=== PATIENT | male | born 1940 | race Caucasian/White ===

== ENCOUNTER 2019-11-28 15:59 | Inpatient (IN) | payer MEDICARE, SELFPAY ==
--- NOTE | ~2019-11-28 | CT_ITS ---
EXAMINATION: CT abdomen pelvis wo con EXAM DATE: 11/28/2019 18:13 INDICATION: Abdominal distention, recent PICC placement. TECHNIQUE: Spiral CT of the abdomen and pelvis was performed without contrast. Axial, coronal and s agittal images were reviewed. The dose-length product (DLP) for this examination was 518.55 mGy-cm. The exposure was tailored according to patient size (auto mA exposure control), and iterative recons truction (ASIR) was used as additional dose reduction technique. Comparison is made to prior examinat ion from 10/19/2019. FINDINGS: Small to moderate left, small right pleural effusions with adjacent subsegmental atelectasi s, has developed compared to previous examination. There is also small pericardial effusion. There is diffuse edema within fat planes superficially and within the mesentery, anasarca. Evaluation of the abdomen is limited from anasarca (has progressed), and large amount of dense materi al within the colon from enema performed 2 days earlier. The liver, spleen, adrenal glands and pancre as are grossly unremarkable. Gallbladder is poorly visualized. There is no nephrolithiasis or hydro nephrosis. The prostate is unremarkable. The bladder is unremarkable. There is extensive scatter ed arterial sclerotic disease. Appendix is not identified. The stomach and small bowel are unremarkable. Gastrostomy tube is in posi tion. No free intraperitoneal gas. Right hip lag screws. There are no osteoblastic or osteolyti c lesions identified. There is emphysema. IMPRESSION: 1. Significantly limited exam due to large amount of retained colonic barium, noncontrast study and worsening anasarca. 2. Development of small to moderate left, small right pleural effusions and adjacent atelectasis. 3. Gastrostomy tube in position. No free intraperitoneal air. Reviewed, dictated and finalized at location A. [employer] IMPRESSION: 1. Significantly limited exam due to large amount of retained colonic barium, noncontrast study and worsening anasarca. 2. Development of small to moderate left, small right pleural effusions and ad jacent atelectasis. 3. Gastrostomy tube in position. No free intraperitoneal air.
--- NOTE | ~2019-11-28 | XR_ITS ---
EXAMINATION: XR abdomen/kub 1V INDICATION: Abdominal distention TECHNIQUE: Supine view of the abdomen is obtained. COMPARISON: 11/25/2019 FINDINGS: There is a moderate amount of fluid obtained enteric contrast material in the colon from re cent barium enema. There is unchanged chronically dilated loop of small bowel in the midabdomen. A ga strostomy is noted. No free intraperitoneal gas is identified. The visualized lung bases are clear. IMPRESSION: 1. Moderate volume of retained enteric contrast material. 2. Chronic small bowel dilatation. Reviewed, dictated and finalized at location A. NICAL AID
--- NOTE | ~2019-11-28 | XR_ITS ---
EXAMINATION: XR abdomen/kub 1V INDICATION: Ileus TECHNIQUE: Supine view of the abdomen is obtained. COMPARISON: 11/29/2019 FINDINGS: There is persistent but decreased amount of retained enteric contrast material in the colon . A gastrostomy is again noted. There is an unchanged chronically dilated loop of small bowel in the upper abdomen. Internal stabilization screws are present in the right femoral neck. Incidental note i s made of a fragmented metallic density of the right thumb which has the appearance of a sewing needl e. IMPRESSION: 1. Persistent but decreased volume of retained enteric contrast material in the colon. 2. Chronically dilated small bowel loop. Reviewed, dictated and finalized at location A. OCCUPATIONAL HEALTH
--- NOTE | ~2019-11-28 | XR_ITS ---
EXAMINATION: XR UGI water soluble w sbs DATE: 12/01/2019 14:20 INDICATION: Ileus versus partial obstruction, history of Crohn disease TECHNIQUE: Water-soluble contrast was instilled through the patient's gastrostomy. Conventional supin e abdomen radiographs and fluoroscopy of the stomach and small bowel were performed. Fluoroscopy expo sure time was 1.5 minutes. The DAP for this procedure was 36.602 Gycm2. COMPARISON: None. FINDINGS: UPPER GASTROINTESTINAL SERIES: The stomach is normal in appearance. There is a small sliding hiatal hernia. The stomach shows a norm al folding pattern.] There is spontaneous gastroesophageal reflux. SMALL BOWEL SERIES: Transit time from the stomach to proximal colon was approximately 30 minutes. There is a single persi stent chronically dilated loop of small bowel in the right upper quadrant. An abrupt cut off in the b owel loop seen on the 15 minute postcontrast radiograph does not persist with real-time fluoroscopy. No focal transition point is identified. No tethering or abnormal mass effect observed upon the small bowel with real-time fluoroscopy. IMPRESSION: 1. Chronic persistent dilatation of a right upper quadrant small bowel loop, likely adynamic ileus or partial obstruction. 2. Small sliding hiatal hernia with spontaneous gastroesophageal reflux. Reviewed, dictated and finalized at location A. AMING MEDIA SPECIALIST IMPRESSION: 1. Chronic persistent dilatation of a right upper quadrant small bowel loop, li leonides adynamic ileus or partial obstruction. 2. Small sliding hiatal hernia with spontaneous gastroesophageal reflux.
--- NOTE | ~2019-11-28 | XR_ITS ---
EXAMINATION: XR abdomen/kub 1V DATE: 12/01/2019 09:05 INDICATION: Small bowel obstruction. TECHNIQUE: A supine view of the abdomen was obtained. COMPARISON: CT abdomen and pelvis 11/28/2019 FINDINGS: There is gaseous distention of the colon. There is a small volume of contrast in the distal colon. There is a gastrostomy tube in expected position. There are pins in proximal right femur. IMPRESSION: 1. Gaseous distention of the colon, consistent with adynamic ileus. Reviewed, dictated and finalized at location B. IBILITY COUNSELOR
[2019-11-28 15:59] VITALS: BP 142/77; PULSE 92; RESP 16; TEMP 36.6; O2SAT 96
--- NOTE | 2019-11-28 16:07 | ED.ABDPAIN ---
HPI - Abdominal Pain General Chief Complaint: Abdominal Pain <Kalen Bedolla MD - Last Filed: 11/28/19 18:23> Stated Complaint: Abd Distended/Pain <Kalen Bedolla MD - Last Filed: 11/28/19 18:23> Time Seen by Provider: 11/28/19 16:04 <Kalen Bedolla MD - Last Filed: 11/28/19 18:23> Source: patient and old records reviewed <Kalen Bedolla MD - Last Filed: 11/28/19 18:23> Mode of arrival: EMS <Kalen Bedolla MD - Last Filed: 11/28/19 18:23> Limitations: no limitations <Kalen Bedolla MD - Last Filed: 11/28/19 18:23> History of Present Illness HPI narrative: A 79 y/o male pt presents to the ED, via ems, from [facility], with C/O ABD pain that began at 1400 PM. Pt states his ABD feels distended and states that his ABD pain is preventing him from lying on his back. Pt states he was admitted to the hospital on 11/12/2019 because he was not eating d/t his depression. Per records, pt was admitted for severe weakness and hyponatremia and a g-tube was placed by Dr. Mills on 11/24/2019. Pt passed gas on the way to the ED but denies any gas or belching in the ED. Pt also denies N/V/D and denies having any other pain. He states that he does feel SOB and has a cough and cold Sx. Pt denies any ABD surgeries besides placement of g-tube. He states that his helps him to make medical decisions and he is currently being treated for depression. Pt denies being able to get up and walk around. <Kalen Bedolla MD - Last Filed: 11/28/19 18:23> MD elicited complaint: abdominal pain <Kalen Bedolla MD - Last Filed: 11/28/19 18:23> Pertinent past history: other (g-tube placement) <Kalen Bedolla MD - Last Filed: 11/28/19 18:23> Onset (ago): hour(s) (2) <Kalen Bedolla MD - Last Filed: 11/28/19 18:23> Exacerbating factors: other (lying on back) <Kalen Bedolla MD - Last Filed: 11/28/19 18:23> Associated symptoms: other (cough, SOB, cold Sx) <Kalen Bedolla MD - Last Filed: 11/28/19 18:23> Related Data Home Medications: Home Medications Medication Instructions Recorded Confirmed fluticasone propionate 50 2 spray NASAL DAILY 08/30/19 11/12/19 mcg/actuation nasal spray,suspension ipratropium bromide 0.02 % 2.5 ml INHALATION Q6H 08/30/19 11/12/19 solution for inhalation multivitamin [Jhz-Eziwpj-Lvsqv] 1 tablet PO DAILY 10/18/19 11/12/19 calcium carbonate [Oyster Shell 500 mg PO BID 11/12/19 11/12/19 Calcium 500] budesonide-formoterol [Symbicort] 2 puff INHALATION Q12H 11/28/19 11/28/19 roflumilast [Daliresp] 500 mcg FEEDING TUBE DAILY 11/28/19 <Kalen Bedolla MD - Last Filed: 11/28/19 18:23> Allergies/Adverse Reactions: Allergies Allergy/AdvReac Type Severity Reaction Status Date / Time No Known Allergies Allergy Verified 11/28/19 16:06 <Kalen Bedolla MD - Last Filed: 11/28/19 18:23> Review of Systems Review of Systems: All systems reviewed & are unremarkable except as noted in HPI and below <Kalen Bedolla MD - Last Filed: 11/28/19 18:23> ENT: Reports other (cold Sx) <Kalen Bedolla MD - Last Filed: 11/28/19 18:23> Respiratory: Respiratory: Reports cough and Reports dyspnea <Kalen Bedolla MD - Last Filed: 11/28/19 18:23> Gastrointestinal: Gastrointestinal: Reports abdominal pain, Denies belching, Reports bloating, Denies excessive flatus, Denies diarrhea, Denies nausea, Denies vomiting and Reports other (passed gas en route) <Kalen Bedolla MD - Last Filed: 11/28/19 18:23> PMFSH Past Medical History Medical History: Medical History Anemia Angina at rest Anxiety AVM (arteriovenous malformation) of duodenum, acquired Bronchiectasis without complication CHF with left ventricular diastolic dysfunction, NYHA class 1 Chronic GERD Chronic obstructive pulmonary disease Claudication Crohn's disease Cr
[2019-11-28 16:34] LABS: Basophils Percent Auto 0.6 % (0.2-1.2); Eosinophils Percent Auto 0.6 % (0-4.4); Hematocrit 26.9 % (42.0-52.0); Immature Granulocyte Absolute 0.03 K/mm3 (0.00-0.031); Immature Granulocyte Percent A 0.5 % (0-0.5); Lymphocytes Absolute Auto 0.97 K/mm3 (0.9-3.2); Lymphocytes Percent Auto 14.6 % (18.3-44.2); Mean Corpuscular HGB Conc 33.5 g/dl (32-36); Mean Corpuscular Volume 89.7 fl (80-100); Mean Platelet Volume 9.2 fl (7.4-10.4); Monocytes Absolute Auto 0.5 K/mm3 (0.1-0.6); Monocytes Percent Auto 8.1 % (2.6-8.5); Neutrophils Percent Auto 75.6 % (45.5-73.1); Platelet Count Result 354 k/mm3 (150-375); Red Cell Distribution Width 15.9 % (11.5-14.5); White Blood Count 6.7 K/mm3 (4.5-10.0)
[2019-11-28 16:50] LABS: Lactic Acid Reflex 0.7 mmol/L (0.7-2.1)
[2019-11-28 16:57] LABS: Magnesium 1.7 mg/dL (1.6-2.3)
[2019-11-28 17:09] LABS: Alanine Aminotransferase 46 U/L (4-50); Albumin Level 2.4 g/dL (3.5-5.1); Alkaline Phosphatase 93 U/L (38-126); Aspartate Amino Transferase 61 U/L (17-59); Bilirubin,Total 0.4 mg/dL (0.2-1.3); Blood Urea Nitrogen 16 mg/dL (9-20); Carbon Dioxide 27 mmol/L (22-30); Chloride 92 mmol/L (98-107); Estimated CRCL calculation 111 ml/min; Estimated Glomerular Filt Rate > 60; Glucose 83 mg/dL (75-110); Lipase 70 U/L (23-300); Potassium 3.6 mmol/L (3.4-5.0); Sodium 125 mmol/L (137-145)
[2019-11-28 18:28] VITALS: BP 151/81; PULSE 90; RESP 20; O2SAT 97
[2019-11-28] MEDS: metroNIDAZOLE 500 MG/ISO 100ML 500 MG/100 ML BAG 100 MG IVPB (20:15)
[2019-11-28 20:24] VITALS: BP 151/83; PULSE 85; RESP 20; TEMP 37.1; O2SAT 98
[2019-11-28 21:02] VITALS: BMI 19.1
[2019-11-28 21:51] VITALS: BP 158/86; PULSE 91; RESP 18; TEMP 36.6; O2SAT 98; BMI 19.1
[2019-11-28] MEDS: CIPROFLOXACIN 400 MG/D5W 200ML 200 ML 200 MG IVPB (22:07)
[2019-11-28] MEDS: SODIUM CHLORIDE 0.9% IV 1,000 ML 125 ML IV CONT (22:07)
[2019-11-29] MEDS: SODIUM CHLORIDE 0.9% IV 1,000 ML 125 ML IV CONT ×2 (05:05→15:22)
[2019-11-29 06:00] VITALS: BP 129/75; PULSE 88; RESP 18; TEMP 37; O2SAT 95
[2019-11-29 06:14] LABS: Basophils Percent Auto 0.5 % (0.2-1.2); Eosinophils Percent Auto 0.5 % (0-4.4); Hematocrit 23.9 % (42.0-52.0); Hemoglobin 8.1 g/dL (14.0-18.0); Immature Granulocyte Absolute 0.02 K/mm3 (0.00-0.031); Immature Granulocyte Percent A 0.5 % (0-0.5); Lymphocytes Absolute Auto 0.75 K/mm3 (0.9-3.2); Lymphocytes Percent Auto 17.2 % (18.3-44.2); Mean Corpuscular HGB Conc 33.9 g/dl (32-36); Mean Corpuscular Hemoglobin 29.9 pg (26-34); Mean Corpuscular Volume 88.2 fl (80-100); Mean Platelet Volume 9.2 fl (7.4-10.4); Monocytes Absolute Auto 0.4 K/mm3 (0.1-0.6); Monocytes Percent Auto 9.2 % (2.6-8.5); Neutrophils Absolute Auto 3.1 K/mm3 (1.3-6.7); Neutrophils Percent Auto 72.1 % (45.5-73.1); Platelet Count Result 307 k/mm3 (150-375); Red Blood Count 2.71 M/mm3 (4.6-6.20); Red Cell Distribution Width 15.9 % (11.5-14.5); White Blood Count 4.4 K/mm3 (4.5-10.0)
[2019-11-29 06:35] LABS: Alanine Aminotransferase 37 U/L (4-50); Albumin Level 2.1 g/dL (3.5-5.1); Alkaline Phosphatase 72 U/L (38-126); Aspartate Amino Transferase 50 U/L (17-59); Bilirubin,Total 0.3 mg/dL (0.2-1.3); Blood Urea Nitrogen 14 mg/dL (9-20); Calcium 7.8 mg/dL (8.4-10.2); Carbon Dioxide 26 mmol/L (22-30); Chloride 94 mmol/L (98-107); Estimated CRCL calculation 77 ml/min; Estimated Glomerular Filt Rate > 60; Glucose 83 mg/dL (75-110); Potassium 3.4 mmol/L (3.4-5.0); Sodium 126 mmol/L (137-145)
[2019-11-29] MEDS: metroNIDAZOLE 500 MG/ISO 100ML 500 MG/100 ML BAG 100 MG IVPB (08:21)
[2019-11-29 09:15] LABS: Glucose Point of Care 93 (65-105)
[2019-11-29] MEDS: CIPROFLOXACIN 400 MG/D5W 200ML 200 ML 200 MG IVPB (09:38)
--- NOTE | 2019-11-29 09:59 | PM.IMHP ---
H&P: HPI History of Present Illness Chief complaint: ileus Narrative: Stanley Cook is a 79 year old male was recently discharged from [facility] on November 27. Due to depression and anorexia in spite of a normal modified barium swallow he required a feeding tube that was placed on November 24 to maintain nutrition. He was tolerating the tube feedings well. However during the afternoon of November 28 he developed some abdominal discomfort. Aching. Bloating. Worse with lying flat. Worse with movement. He had been having liquid stools without bleeding but with incontinence since starting the tube feeding. Is also incontinent of urine. Prior urinary retention both no further issues with that. No nausea or vomiting. No dysuria or hematuria. Remains anorectic. No fevers chills or sweats. Review of Systems Review of Systems: All systems reviewed & are unremarkable except as noted in HPI and below PMFSH Past Medical History Medical History Anemia Angina at rest Anxiety AVM (arteriovenous malformation) of duodenum, acquired Bronchiectasis without complication CHF with left ventricular diastolic dysfunction, NYHA class 1 Chronic GERD Chronic obstructive pulmonary disease Claudication Crohn's disease Crohn's disease Dementia Depression Dysphagia Enlarged prostate slightly Essential (primary) hypertension Falls Gastric ulcer Glaucoma Hyperlipidemia Hyponatremia Ileal stenosis Insomnia 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 He is a full code. He has 2 children. 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 [employer] Gender identity (if verbalized by the patient): Male Spiritual care concerns: No Agree to blood products: Yes Meds Home Medications and Allergies Home Medications Medication Instructions Recorded Confirmed Type fluticasone propionate 50 2 spray NASAL DAILY 08/30/19 11/28/19 History mcg/actuation nasal spray,suspension ipratropium bromide 0.02 % 2.5 ml INHALATION Q6H 08/30/19 11/28/19 History solution for inhalation alprazolam 0.5 mg tablet 0.5 mg PO DAILY PRN #30 tablet 09/19/19 11/28/19 Rx multivitamin [Gjp-Hbuamx-Eunxm] 1 tablet PO DAILY 10/18/19 11/28/19 History calcium carbonate [Oyster Shell 500 mg PO 0900,1700 11/12/19 11/28/19 History Calcium 500] acetaminophen [Nortemp] 650 mg FEEDING TUBE Q4H PRN 30 11/27/19 11/28/19 Rx Days ml albuterol sulfate 2.5 mg INHALATION Q4HRT PRN 30 11/27/19 11/28/19 Rx Days each atorvastatin 40 mg FEEDING TUBE DAILY 30 Days 11/27/19 11/28/19 Rx #30 tablet diphenoxylate-atropine 1 tablet FEEDING TUBE PRN PRN 30 11/27/19 11/28/19 Rx Days tablet folic acid 1 mg FEEDING TUBE DAILY #30 tablet 11/27/19 11/28/19 Rx guaifenesin 200 mg PO Q4H PRN 30 Days ml 11/27/19 11/28/19 Rx ipratropium bromide 0.5 mg INHALATION Q4HRT PRN 30 11/27/19 11/28/19 Rx Days ml lansoprazole 30 mg FEEDING TUBE DAILY 30 Days 11/27/19 11/28/19 Rx #3
[2019-11-29] MEDS: FLUTICASONE PROPIONATE 0.05% NA SPR 16 GM BTL (*BKC) 2 SPRAY NASAL (11:49)
[2019-11-29] MEDS: PROCHLORPERAZINE EDISYLATE 10 MG/2 ML VIAL IV PUSH (11:50)
[2019-11-29] MEDS: TOLNAFTATE 1% POWDER 45 GM BTL 1 APPLIC TOPICAL ×2 (11:50→20:38)
[2019-11-29 12:14] LABS: Glucose Point of Care 83 (65-105)
[2019-11-29] MEDS: polyethylene glycoL 3350 17 GM POWD.PACK PO ×5 (12:45→22:27)
[2019-11-29 14:00] VITALS: BP 131/80; PULSE 102; RESP 16; TEMP 36.3; O2SAT 100
--- NOTE | 2019-11-29 14:14 | WPDGICN ---
Assessment and Plan Assessment and plan (1) Ileus: Code(s): K56.7 - Ileus, unspecified Status: Acute Assessment and Plan: Will continue Miralax q 2 h Consider enemas Keep NPO. (2) Ileal stenosis: Code(s): K56.699 - Other intestinal obstruction unspecified as to partial versus complete obstruction Status: Acute (3) Crohn's disease: Qualifiers: Gastrointestinal tract location: small intestine Digestive disease complication type: unspecified complication Qualified Code(s): K50.019 - Crohn's disease of small intestine with unspecified complications Code(s): K50.90 - Crohn's disease, unspecified, without complications Status: Acute Assessment and Plan: Would like to start oral prednisone 40 mg daily. Taper at discharge. (4) Protein-calorie malnutrition, moderate: Code(s): E44.0 - Moderate protein-calorie malnutrition Status: Acute (5) Diarrhea: Code(s): R19.7 - Diarrhea, unspecified Status: Acute Assessment and Plan: Will check c diff and stool studies. This could be secondary to ileal stricture GI Consult Note Consult date/time: 11/29/19 14:14 HPI: Stanley Cook is a 79 year old male presented to ED 11/28/2019 for worsening abdominal pain and bloating per H&P note. Patient was recently discharged 1 day prior after he was admitted for malnutrition and anorexia. He had PEG tube placed by Dr. Mills and was tolerating tube feedings. He did have noted that previous admission concerns for SBO vs Ileus. He had a barium enema that showed retained contrast in the colon. This admission he had CT abd/pelvis that showed persisant chronic SBO and retained barium in colon along with worsening anasaraca. Nurse tells me that patient is having liquids stools. She denies any nausea, vomiting. Tube feedings are currently on hold. He had c diff previous admission that was normal. WBC low at 4.1, hgb/hct stable. He does have hx of crohn's disease and had colonoscopy earlier in the year that showed some colitis and ileal stenosis. He was on oral prednisone prior to previous admission. He does have hx of gastritis with erosions and AVM's of the duodenum. Review of Systems Review of Systems: All systems reviewed & are unremarkable except as noted in HPI and below PMFSH Past Medical History Medical History Anemia Angina at rest Anxiety AVM (arteriovenous malformation) of duodenum, acquired Bronchiectasis without complication CHF with left ventricular diastolic dysfunction, NYHA class 1 Chronic GERD Chronic obstructive pulmonary disease Claudication Crohn's disease Crohn's disease Dementia Depression Dysphagia Enlarged prostate slightly Essential (primary) hypertension Falls Gastric ulcer Glaucoma Hyperlipidemia Hyponatremia Ileal stenosis Insomnia FCI use of drug Low back pain at multiple sites Lung nodules Memory loss TAD (obstructive sleep apnea) Peripheral neuropathy Personal history of colonic polyps Pulmonary emphysema Pulmonary hypertension Thrush UTI (urinary tract infection) Surgical History Surgical History History of cardiac catheterization History of hip surgery right Hx of appendectomy Hx of colonoscopy Hx of esophagogastroduodenoscopy Hx of tonsillectomy Social History Social History Social History: He lives with his who is his durable power criminal defense attorney for healthcare. He is a full code. He has 2 children. 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/education comments: [employer]
[2019-11-29 15:23] LABS: Hematocrit 28.3 % (42.0-52.0); Hemoglobin 9.6 g/dL (14.0-18.0); Mean Corpuscular HGB Conc 33.9 g/dl (32-36); Mean Corpuscular Hemoglobin 29.9 pg (26-34); Mean Corpuscular Volume 88.2 fl (80-100); Mean Platelet Volume 9.1 fl (7.4-10.4); Platelet Count Result 355 k/mm3 (150-375); Red Blood Count 3.21 M/mm3 (4.6-6.20); White Blood Count 4.8 K/mm3 (4.5-10.0)
[2019-11-29 15:33] LABS: INR 1.1; Prothrombin Time 13.8 Seconds (11.1-14.7)
[2019-11-29 15:47] LABS: Alanine Aminotransferase 39 U/L (4-50); Albumin Level 2.6 g/dL (3.5-5.1); Alkaline Phosphatase 91 U/L (38-126); Aspartate Amino Transferase 55 U/L (17-59); Bilirubin,Total 0.5 mg/dL (0.2-1.3); Blood Urea Nitrogen 12 mg/dL (9-20); Calcium 8.3 mg/dL (8.4-10.2); Carbon Dioxide 26 mmol/L (22-30); Chloride 95 mmol/L (98-107); Estimated CRCL calculation 77 ml/min; Estimated Glomerular Filt Rate > 60; Glucose 74 mg/dL (75-110); Magnesium 1.8 mg/dL (1.6-2.3); Potassium 3.2 mmol/L (3.4-5.0); Sodium 128 mmol/L (137-145)
[2019-11-29 15:58] LABS: CRP 3.9 mg/dL (<1.0)
[2019-11-29] MEDS: POTASSIUM CHLORIDE 20 MEQ PACKET (FOR LIQUID) 40 MEQ PO (16:50)
[2019-11-29 18:17] LABS: Glucose Point of Care 73 (65-105)
[2019-11-29 21:32] VITALS: PULSE 87; RESP 20
[2019-11-29 22:00] VITALS: BP 131/60; PULSE 93; RESP 18; TEMP 36.9; O2SAT 98
[2019-11-30] MEDS: polyethylene glycoL 3350 17 GM POWD.PACK PO ×11 (00:56→23:12)
[2019-11-30 00:57] LABS: Glucose Point of Care 111 (65-105)
[2019-11-30 06:00] VITALS: BP 141/72; PULSE 81; RESP 16; TEMP 36.9; O2SAT 98
[2019-11-30 06:43] LABS: Hematocrit 23.9 % (42.0-52.0); Hemoglobin 8.2 g/dL (14.0-18.0); Mean Corpuscular HGB Conc 34.3 g/dl (32-36); Mean Corpuscular Hemoglobin 29.8 pg (26-34); Mean Corpuscular Volume 86.9 fl (80-100); Mean Platelet Volume 8.5 fl (7.4-10.4); Platelet Count Result 308 k/mm3 (150-375); Red Blood Count 2.75 M/mm3 (4.6-6.20); Red Cell Distribution Width 16.2 % (11.5-14.5); White Blood Count 3.8 K/mm3 (4.5-10.0)
[2019-11-30 06:57] LABS: Blood Urea Nitrogen 9 mg/dL (9-20); Calcium 8.1 mg/dL (8.4-10.2); Carbon Dioxide 26 mmol/L (22-30); Chloride 93 mmol/L (98-107); Estimated CRCL calculation 77 ml/min; Estimated Glomerular Filt Rate > 60; Glucose 79 mg/dL (75-110); Potassium 3.2 mmol/L (3.4-5.0); Sodium 125 mmol/L (137-145)
--- NOTE | 2019-11-30 08:45 | WPDGIPROGNO ---
Progress Note: A&P Assessment and Plan (1) Abdominal pain: Qualifiers: Abdominal location: generalized Qualified Code(s): R10.84 - Generalized abdominal pain Code(s): R10.9 - Unspecified abdominal pain Status: Acute (2) Ileus: Code(s): K56.7 - Ileus, unspecified Status: Acute Assessment and Plan: Noted less abdominal distension today and having liquids stools. This appears to be improving. Will consider decreasing miralax (3) Crohn's disease: Qualifiers: Gastrointestinal tract location: small intestine Digestive disease complication type: unspecified complication Qualified Code(s): K50.019 - Crohn's disease of small intestine with unspecified complications Code(s): K50.90 - Crohn's disease, unspecified, without complications Status: Acute Assessment and Plan: Continue oral prednisone. Taper at discharge (4) Ileal stenosis: Code(s): K56.699 - Other intestinal obstruction unspecified as to partial versus complete obstruction Status: Acute Subjective Date/time seen: 11/30/19 08:45 Denies abdominal pain, nausea or vomiting. Patient has been having multiple loose stools-per nursing throughout night. Review of Systems Review of Systems: All systems reviewed & are unremarkable except as noted in HPI and below Exam Const: General: cooperative, comfortable, alert, awake and ill appearing Nutritional Appearance: malnourished and thin Orientation/consciousness: oriented to person, oriented to place, oriented to time and patient oriented x3 Limitations: physical limitations Resp: Effort & Inspection: normal respiratory effort and no respiratory distress Auscultation: clear to auscultation bilaterally Cardio: Rate: regular rate Rhythm: regular rhythm Heart sounds: S1 normal heart sound present, S2 normal heart sound present, no gallops, no murmurs and no rubs GI: Inspection: normal to inspection GI Palp: No abdominal tenderness and No No hepatosplenomegaly present Percussion: Yes normal to percussion Auscultation: High-pitched bowel sounds present and Hyperactive bowel sounds present Rectal Exam: deferred Other: PEG tube noted in left upper abdomen. Site clean and dry Neuro: General: oriented to person, oriented to place, oriented to time, patient oriented x3 and moves all extremities Speech: aphasia Gait exam (Neuro): Unable to assess gait Motor exam (neuro): Abnormal motor strength present Extrem: General: normal to inspection Psych: Appearance: grossly normal Mental Status: mental status grossly normal Speech and movement: Normal speech and movement present Affect: normal affect Attitude: cooperative Thought process: Normal thought process present Objective Data Vital Signs Vital Signs: Vital Signs - 24 hr 11/29/19 14:00 11/29/19 21:32 11/29/19 22:00 Temperature 36.3 C L 36.9 C Pulse Rate 102 H 87 93 Respiratory Rate 16 20 18 Blood Pressure 131/80 131/60 Pulse Oximetry 100 98 11/30/19 06:00 Temperature 36.9 C Pulse Rate 81 Respiratory Rate 16 Blood Pressure 141/72 H Pulse Oximetry 98 Intake/Output Intake/Output: Intake & Output 11/27/19 11/28/19 11/29/19 11/30/19 23:59 23:59 23:59 23:59 Intake Total 300 2100 1200 Balance 300 2100 1200 Meds/Results Medications: Active Medications Generic Name Dose Route Start Last Admin Trade Name Freq PRN Reason Stop Dose Admin Budesonide/Formoterol Fumarate 2 puff 11/29/19 20:00 11/30/19 08:39 Symbicort 80-4.5 Mcg (*Sp) Inhaler INHALATION 2 puff Q12HRT REGINA Administration Diphenhydramine HCl 25 mg 11/29/19 21:00 11/29/19 20:41 Benadryl Cap PO 25 mg HS REGINA Administration Fluticasone Propionate 2 spray 11/29/19 09:00 11/29/19 11:49 Flonase 0.05% Nasal [place] NASAL 2 spray DAILY REGINA Administration Ipratropium [place] 0.5 mg 11/29/19 10:13 Atrovent Neb INHALATION Q4HRT PRN Shortness Of Breath Ondan
[2019-11-30] MEDS: POTASSIUM CHLORIDE 20 MEQ PACKET (FOR LIQUID) 40 MEQ FEED TUBE ×2 (09:16→11:24)
[2019-11-30] MEDS: predniSONE 20 MG TABLET 40 MG PO (09:16)
[2019-11-30] MEDS: SPIRONOLACTONE 50 MG TABLET PO (09:16)
[2019-11-30] MEDS: TOLNAFTATE 1% POWDER 45 GM BTL 1 APPLIC TOPICAL ×2 (09:28→21:23)
[2019-11-30 13:33] VITALS: BMI 19.1
[2019-11-30 14:00] VITALS: BP 147/76; PULSE 91; RESP 16; TEMP 37.7; O2SAT 98
--- NOTE | 2019-11-30 14:05 | P.PNIM_ITS ---
Progress Note: A&P Assessment and Plan (1) Abdominal pain: Qualifiers: Abdominal location: generalized Qualified Code(s): R10.84 - Generalized abdominal pain Code(s): R10.9 - Unspecified abdominal pain Status: Acute Assessment and Plan: * Suspect in part due to retained barium * Crohn's disease clinically not active but stricture may be contributing to his issues * Upper GI with small-bowel follow-through 12/01 if enough barium has cleared (2) GERD (gastroesophageal reflux disease): Qualifiers: Esophagitis presence: esophagitis presence not specified Qualified Code(s): K21.9 - Gastro-esophageal reflux disease without esophagitis Code(s): K21.9 - Gastro-esophageal reflux disease without esophagitis Status: Acute Assessment and Plan: * Resume Prevacid (3) Crohn's disease: Qualifiers: Gastrointestinal tract location: small intestine Digestive disease complication type: unspecified complication Qualified Code(s): K50.019 - Crohn's disease of small intestine with unspecified complications Code(s): K50.90 - Crohn's disease, unspecified, without complications Status: Acute Assessment and Plan: * Monitor for signs or symptoms (4) Dysphagia: Qualifiers: Dysphagia type: unspecified Qualified Code(s): R13.10 - Dysphagia, unspecified Code(s): R13.10 - Dysphagia, unspecified Status: Acute Assessment and Plan: * Soft bite size food * Previously passed modified barium swallow (5) Depression: Qualifiers: Depression Type: major depressive disorder Major depression recurrence: recurrent Active/Remission status: currently active Major depression episode severity: severe Psychotic features: without psychotic features Qualified Code(s): F33.2 - Major depressive disorder, recurrent severe without psychotic features Code(s): F32.9 - Major depressive disorder, single episode, unspecified Status: Acute Assessment and Plan: * Resume mirtazapine when oral intake resumes * Avoid benzodiazepines and zolpidem if possible (was previously tapered off these) (6) Protein-calorie malnutrition, moderate: Code(s): E44.0 - Moderate protein-calorie malnutrition Status: Acute Assessment and Plan: * Resume tube feeding (7) AVM (arteriovenous malformation) of duodenum, acquired: Code(s): K31.819 - Angiodysplasia of stomach and duodenum without bleeding Status: Acute Assessment and Plan: * Monitor for signs or symptoms of bleeding (8) Peripheral neuropathy: Qualifiers: Peripheral neuropathy type: polyneuropathy, unspecified Qualified Code(s): G62.9 - Polyneuropathy, unspecified Code(s): G62.9 - Polyneuropathy, unspecified Status: Acute Assessment and Plan: * Resume PT OT (9) Gait disorder: Code(s): R26.9 - Unspecified abnormalities of gait and mobility Status: Acute Assessment and Plan: * Resume PT OT (10) Hyponatremia: Code(s): E87.1 - Hypo-osmolality and hyponatremia Status: Acute Assessment and Plan: * Chronic * Previously due to volume depletion * Should be volume replete * Repeat fractional excretion of sodium (11) Orthostatic hypotension: Code(s): I95.1 - Orthostatic hypotension Status: Acute Assessment and Plan: * Suspect related to his polyneuropathy * Repeat orthostatics * Repeat fractional excretion of sodium (12) Pulmonary nodule: Code(s): R91.1 -
--- NOTE | 2019-11-30 14:05 | PM.IMPN ---
Progress Note: A&P Assessment and Plan (1) Abdominal pain: Qualifiers: Abdominal location: generalized Qualified Code(s): R10.84 - Generalized abdominal pain Code(s): R10.9 - Unspecified abdominal pain Status: Acute Assessment and Plan: Suspect in part due to retained barium Crohn's disease clinically not active but stricture may be contributing to his issues Upper GI with small-bowel follow-through 12/01 if enough barium has cleared (2) GERD (gastroesophageal reflux disease): Qualifiers: Esophagitis presence: esophagitis presence not specified Qualified Code(s): K21.9 - Gastro-esophageal reflux disease without esophagitis Code(s): K21.9 - Gastro-esophageal reflux disease without esophagitis Status: Acute Assessment and Plan: Resume Prevacid (3) Crohn's disease: Qualifiers: Gastrointestinal tract location: small intestine Digestive disease complication type: unspecified complication Qualified Code(s): K50.019 - Crohn's disease of small intestine with unspecified complications Code(s): K50.90 - Crohn's disease, unspecified, without complications Status: Acute Assessment and Plan: Monitor for signs or symptoms (4) Dysphagia: Qualifiers: Dysphagia type: unspecified Qualified Code(s): R13.10 - Dysphagia, unspecified Code(s): R13.10 - Dysphagia, unspecified Status: Acute Assessment and Plan: Soft bite size food Previously passed modified barium swallow (5) Depression: Qualifiers: Depression Type: major depressive disorder Major depression recurrence: recurrent Active/Remission status: currently active Major depression episode severity: severe Psychotic features: without psychotic features Qualified Code(s): F33.2 - Major depressive disorder, recurrent severe without psychotic features Code(s): F32.9 - Major depressive disorder, single episode, unspecified Status: Acute Assessment and Plan: Resume mirtazapine when oral intake resumes Avoid benzodiazepines and zolpidem if possible (was previously tapered off these) (6) Protein-calorie malnutrition, moderate: Code(s): E44.0 - Moderate protein-calorie malnutrition Status: Acute Assessment and Plan: Resume tube feeding (7) AVM (arteriovenous malformation) of duodenum, acquired: Code(s): K31.819 - Angiodysplasia of stomach and duodenum without bleeding Status: Acute Assessment and Plan: Monitor for signs or symptoms of bleeding (8) Peripheral neuropathy: Qualifiers: Peripheral neuropathy type: polyneuropathy, unspecified Qualified Code(s): G62.9 - Polyneuropathy, unspecified Code(s): G62.9 - Polyneuropathy, unspecified Status: Acute Assessment and Plan: Resume PT OT (9) Gait disorder: Code(s): R26.9 - Unspecified abnormalities of gait and mobility Status: Acute Assessment and Plan: Resume PT OT (10) Hyponatremia: Code(s): E87.1 - Hypo-osmolality and hyponatremia Status: Acute Assessment and Plan: Chronic Previously due to volume depletion Should be volume replete Repeat fractional excretion of sodium (11) Orthostatic hypotension: Code(s): I95.1 - Orthostatic hypotension Status: Acute Assessment and Plan: Suspect related to his polyneuropathy Repeat orthostatics Repeat fractional excretion of sodium (12) Pulmonary nodule: Code(s): R91.1 - Solitary pulmonary nodule Status: Acute Assessment and Plan: TB QuantiFERON gold was indeterminate Will need imaging follow-up in a few months if he is a candidate for further intervention (13) COPD (chronic obstructive pulmonary disease): Qualifiers: COPD type: unspecified COPD Qualified Code(s): J44.9 - Chronic obstructive pulmonary disease, unspecified Code(s): J44.9 - Chronic o
[2019-11-30] MEDS: FLUTICASONE PROPIONATE 0.05% NA SPR 16 GM BTL (*BKC) 2 SPRAY NASAL (19:09)
[2019-11-30] MEDS: MELATONIN 5 MG TABLET FEED TUBE (21:20)
[2019-11-30] MEDS: TAMSULOSIN HCL 0.4 MG CAPSULE PO (21:21)
[2019-11-30] MEDS: MIRTAZAPINE SOLTAB 15 MG TAB.DISPER FEED TUBE (21:43)
[2019-11-30 22:00] VITALS: BP 146/80; PULSE 82; RESP 18; TEMP 36.8; O2SAT 98
[2019-12-01] MEDS: polyethylene glycoL 3350 17 GM POWD.PACK PO ×7 (01:12→14:58)
[2019-12-01 06:00] VITALS: BP 138/73; PULSE 79; RESP 18; TEMP 36.9; O2SAT 99
[2019-12-01 06:07] LABS: Hematocrit 24.8 % (42.0-52.0); Hemoglobin 8.2 g/dL (14.0-18.0); Mean Corpuscular HGB Conc 33.1 g/dl (32-36); Mean Corpuscular Hemoglobin 29.9 pg (26-34); Mean Corpuscular Volume 90.5 fl (80-100); Mean Platelet Volume 9.1 fl (7.4-10.4); Platelet Count Result 320 k/mm3 (150-375); Red Blood Count 2.74 M/mm3 (4.6-6.20); Red Cell Distribution Width 16.9 % (11.5-14.5); White Blood Count 5.2 K/mm3 (4.5-10.0)
[2019-12-01] MEDS: LANSOPRAZOLE ORAL SUSP 30 MG/10 ML ORAL.SUSP FEED TUBE (06:13)
[2019-12-01 06:29] LABS: Blood Urea Nitrogen 13 mg/dL (9-20); Calcium 8.4 mg/dL (8.4-10.2); Carbon Dioxide 25 mmol/L (22-30); Chloride 97 mmol/L (98-107); Estimated CRCL calculation 77 ml/min; Estimated Glomerular Filt Rate > 60; Glucose 126 mg/dL (75-110); Sodium 128 mmol/L (137-145)
[2019-12-01] MEDS: MIDODRINE HCL 10 MG TABLET FEED TUBE (08:17)
[2019-12-01] MEDS: SPIRONOLACTONE 50 MG TABLET PO (08:17)
[2019-12-01] MEDS: predniSONE 20 MG TABLET 40 MG PO (08:18)
[2019-12-01] MEDS: FLUTICASONE PROPIONATE 0.05% NA SPR 16 GM BTL (*BKC) 2 SPRAY NASAL (08:18)
[2019-12-01] MEDS: THIAMINE HCL 100 MG TABLET FEED TUBE (08:18)
[2019-12-01] MEDS: TOLNAFTATE 1% POWDER 45 GM BTL 1 APPLIC TOPICAL (08:19)
--- NOTE | 2019-12-01 11:08 | PCNFU ---
Nutrition Follow-Up Complete: Inadequate oral intake R/T decreased appetite as evidence by need for EN to help meet needs EN tolerance at goal Goal:progressing towards goal. Pt current nutrition is Jevity 1.2 at 65 ml/hr. Nutrition recommendation: Agree Last recorded weight is 53.6 kg. Bowel Motility:last BM reported 11/30 Labs Reviewed:Na 128,Hct 24.8,Hgb 8.2 Meds Noted:Miralax,Prednisone Additional Notes: Patient currently on tube feedings of Jevity 1.2 at 50 ml/hr with goal rate of 65 ml/hr which will provide 1716 kcals and 79 gms protein,/1154 ml fluid. Tube feedings will meet caloric needs. Montioring: EN tolerance, BMs, labs, wt every T/F
--- NOTE | 2019-12-01 12:43 | WPDGIPROGNO ---
Subjective Date/time seen: 12/01/19 12:43 Interval history: This very pleasant gentleman is about the same. KUB shows loss small bowel gas. The colon still distended. He seems slightly more confused today. I a and O was were not charted. Small-bowel series ordered. Heart rate rhythm regular. Lungs decreased breath sounds in the bases. Abdomen was slightly distended and soft. Bowel sounds were active. Extremities were without edema. Impression: Here we have a very pleasant gentleman with dilated small bowel. This may be secondary to incomplete small bowel obstruction versus ileus. Improvement in the small bowel dilation. Crohn's disease with ileal involvement. GERD. Chronic idiopathic constipation. AVM in the duodenum. Adenomatous colon polyps. Remote history of gastric ulcer disease. Malnutrition. Hyponatremia. This may be secondary to fluid overload. The patient has significant soft tissue edema. Sodium improved. Anemia multifactorial in origin. H&H stable. COPD. Bronchiectasis. BPH. Tobacco abuse. Hypertension. Depression. Mild dementia. Glaucoma. Low bone mass. Peripheral neuropathy. Pulmonary hypertension. Obstructive sleep apnea. Thrush. Recent urinary tract infection. Hypertension. Hyperlipidemia. Recommendation: Small-bowel series ordered. Continue prednisone. Resume tube feedings. Will give suppositories. Objective Data Vital Signs Vital Signs: Vital Signs - 24 hr 11/30/19 14:00 11/30/19 22:00 12/01/19 06:00 Temperature 37.7 C H 36.8 C 36.9 C Pulse Rate 91 82 79 Respiratory Rate 16 18 18 Blood Pressure 147/76 H 146/80 H 138/73 Pulse Oximetry 98 98 99 Intake/Output Intake/Output: Intake & Output 11/28/19 11/29/19 11/30/19 12/01/19 23:59 23:59 23:59 23:59 Intake Total 300 2100 1200 981 Balance 300 2100 1200 981 Meds/Results Medications: Active Medications Generic Name Dose Route Start Last Admin Trade Name Freq PRN Reason Stop Dose Admin Budesonide/Formoterol Fumarate 2 puff 11/29/19 20:00 12/01/19 11:10 Symbicort 80-4.5 Mcg (*Sp) Inhaler INHALATION 2 puff Q12HRT REGINA Administration Diphenhydramine HCl 25 mg 11/29/19 21:00 11/30/19 21:20 Benadryl Cap PO 25 mg HS REGINA Administration Fluticasone Propionate 2 spray 11/29/19 09:00 12/01/19 08:18 Flonase 0.05% Nasal [place] NASAL 2 spray DAILY REGINA Administration Ipratropium [place] 0.5 mg 11/29/19 10:13 Atrovent Neb INHALATION Q4HRT PRN Shortness Of Breath Lansoprazole 30 mg 12/01/19 06:30 12/01/19 06:13 Prevacid Susp FEED TUBE 30 mg DAILY@0630 REGINA Administration Melatonin 5 mg 11/30/19 21:00 11/30/19 21:20 Melatonin FEED TUBE 5 mg HS REGINA Administration Midodrine 10 mg 11/30/19 17:00 12/01/19 08:17 Midodrine Hcl FEED TUBE 10 mg 0900,1700 REGINA Administration Mirtazapine 15 mg 11/30/19 21:00 11/30/19 21:43 Remeron Soltab FEED TUBE 15 mg HS REGINA Administration Ondansetron HCl 4 mg 11/28/19 18:54 Zofran Inj IV PUSH Q4H PRN Nausea Polyethylene Glycol 17 gm 11/29/19 12:25 12/01/19 10:31 Miralax PO 17 gm Q2H REGINA Administration Prednisone 40 mg 11/30/19 08:00 12/01/19 08:18 Prednisone PO 40 mg DAILY@0800 REGINA Administration Spironolactone 50 mg 11/30/19 09:00 12/01/19 08:17 Aldactone PO 50 mg QAM REGINA Administration Tamsulosin HCl 0.4 mg 11/30/19 21:00 11/30/19 21:21 Flomax PO 0.4 mg HS REGINA Administration Thiamine HCl 100 mg 12/01/19 09:00 12/01/19 08:18 Vitamin B-1 FEED TUBE 100 mg QAM [facility] Administration Tolnaftate 1 applic 11/29/19 10:25 12/01/19 08:19 Tolnaftate 1% Powder TOPICAL 1 applic Q12HR REGINA Administration Tramadol HCl 25 mg 11/29/19 14:38 Ultram PO Q6H PRN Pain Rated 4-6 Radiology Results: ITS Impressions Abdomen/Pelvis CT 11/28/19 18:14 IMPRESSION: 1. Significantly limited exam due to large amou
[2019-12-01 14:00] VITALS: BP 136/75; PULSE 79; RESP 14; TEMP 36.6; O2SAT 99
--- NOTE | 2019-12-01 14:56 | P.PNIM_ITS ---
Progress Note: A&P Assessment and Plan (1) Abdominal pain: Qualifiers: Abdominal location: generalized Qualified Code(s): R10.84 - Generalized abdominal pain Code(s): R10.9 - Unspecified abdominal pain Status: Acute Assessment and Plan: * Suspect in part due to retained barium * Crohn's disease clinically not active but stricture may be contributing to his issues * Upper GI with small-bowel follow-through 12/01 in progress; likely back to [facility] if no obstruction (2) GERD (gastroesophageal reflux disease): Qualifiers: Esophagitis presence: esophagitis presence not specified Qualified Code(s): K21.9 - Gastro-esophageal reflux disease without esophagitis Code(s): K21.9 - Gastro-esophageal reflux disease without esophagitis Status: Acute Assessment and Plan: * Resumed Prevacid (3) Crohn's disease: Qualifiers: Gastrointestinal tract location: small intestine Digestive disease complication type: unspecified complication Qualified Code(s): K50.019 - Crohn's disease of small intestine with unspecified complications Code(s): K50.90 - Crohn's disease, unspecified, without complications Status: Acute Assessment and Plan: * Monitor for signs or symptoms (4) Dysphagia: Qualifiers: Dysphagia type: unspecified Qualified Code(s): R13.10 - Dysphagia, unspecified Code(s): R13.10 - Dysphagia, unspecified Status: Acute Assessment and Plan: * Soft bite size food * Previously passed modified barium swallow (5) Depression: Qualifiers: Depression Type: major depressive disorder Major depression recurrence: recurrent Active/Remission status: currently active Major depression episode severity: severe Psychotic features: without psychotic features Qualified Code(s): F33.2 - Major depressive disorder, recurrent severe without psychotic features Code(s): F32.9 - Major depressive disorder, single episode, unspecified Status: Acute Assessment and Plan: * Resume mirtazapine when oral intake resumes * Avoid benzodiazepines and zolpidem if possible (was previously tapered off these) (6) Protein-calorie malnutrition, moderate: Code(s): E44.0 - Moderate protein-calorie malnutrition Status: Acute Assessment and Plan: * Resume tube feeding (7) AVM (arteriovenous malformation) of duodenum, acquired: Code(s): K31.819 - Angiodysplasia of stomach and duodenum without bleeding Status: Acute Assessment and Plan: * Monitor for signs or symptoms of bleeding (8) Peripheral neuropathy: Qualifiers: Peripheral neuropathy type: polyneuropathy, unspecified Qualified Code(s): G62.9 - Polyneuropathy, unspecified Code(s): G62.9 - Polyneuropathy, unspecified Status: Acute Assessment and Plan: * Resume PT OT (9) Gait disorder: Code(s): R26.9 - Unspecified abnormalities of gait and mobility Status: Acute Assessment and Plan: * Resume PT OT (10) Hyponatremia: Code(s): E87.1 - Hypo-osmolality and hyponatremia Status: Acute Assessment and Plan: * Chronic * Previously due to volume depletion * Should be volume replete * Repeat fractional excretion of sodium (11) Orthostatic hypotension: Code(s): I95.1 - Orthostatic hypotension Status: Acute Assessment and Plan: * Suspect related to his polyneuropathy * (12) Pulmonary nodule: Code(s): R91.1 - Solitary pulmonary
--- NOTE | 2019-12-01 14:56 | PM.IMPN ---
Progress Note: A&P Assessment and Plan (1) Abdominal pain: Qualifiers: Abdominal location: generalized Qualified Code(s): R10.84 - Generalized abdominal pain Code(s): R10.9 - Unspecified abdominal pain Status: Acute Assessment and Plan: Suspect in part due to retained barium Crohn's disease clinically not active but stricture may be contributing to his issues Upper GI with small-bowel follow-through 12/01 in progress; likely back to [facility] if no obstruction (2) GERD (gastroesophageal reflux disease): Qualifiers: Esophagitis presence: esophagitis presence not specified Qualified Code(s): K21.9 - Gastro-esophageal reflux disease without esophagitis Code(s): K21.9 - Gastro-esophageal reflux disease without esophagitis Status: Acute Assessment and Plan: Resumed Prevacid (3) Crohn's disease: Qualifiers: Gastrointestinal tract location: small intestine Digestive disease complication type: unspecified complication Qualified Code(s): K50.019 - Crohn's disease of small intestine with unspecified complications Code(s): K50.90 - Crohn's disease, unspecified, without complications Status: Acute Assessment and Plan: Monitor for signs or symptoms (4) Dysphagia: Qualifiers: Dysphagia type: unspecified Qualified Code(s): R13.10 - Dysphagia, unspecified Code(s): R13.10 - Dysphagia, unspecified Status: Acute Assessment and Plan: Soft bite size food Previously passed modified barium swallow (5) Depression: Qualifiers: Depression Type: major depressive disorder Major depression recurrence: recurrent Active/Remission status: currently active Major depression episode severity: severe Psychotic features: without psychotic features Qualified Code(s): F33.2 - Major depressive disorder, recurrent severe without psychotic features Code(s): F32.9 - Major depressive disorder, single episode, unspecified Status: Acute Assessment and Plan: Resume mirtazapine when oral intake resumes Avoid benzodiazepines and zolpidem if possible (was previously tapered off these) (6) Protein-calorie malnutrition, moderate: Code(s): E44.0 - Moderate protein-calorie malnutrition Status: Acute Assessment and Plan: Resume tube feeding (7) AVM (arteriovenous malformation) of duodenum, acquired: Code(s): K31.819 - Angiodysplasia of stomach and duodenum without bleeding Status: Acute Assessment and Plan: Monitor for signs or symptoms of bleeding (8) Peripheral neuropathy: Qualifiers: Peripheral neuropathy type: polyneuropathy, unspecified Qualified Code(s): G62.9 - Polyneuropathy, unspecified Code(s): G62.9 - Polyneuropathy, unspecified Status: Acute Assessment and Plan: Resume PT OT (9) Gait disorder: Code(s): R26.9 - Unspecified abnormalities of gait and mobility Status: Acute Assessment and Plan: Resume PT OT (10) Hyponatremia: Code(s): E87.1 - Hypo-osmolality and hyponatremia Status: Acute Assessment and Plan: Chronic Previously due to volume depletion Should be volume replete Repeat fractional excretion of sodium (11) Orthostatic hypotension: Code(s): I95.1 - Orthostatic hypotension Status: Acute Assessment and Plan: Suspect related to his polyneuropathy (12) Pulmonary nodule: Code(s): R91.1 - Solitary pulmonary nodule Status: Acute Assessment and Plan: TB QuantiFERON gold was indeterminate Will need imaging follow-up in a few months if he is a candidate for further intervention (13) COPD (chronic obstructive pulmonary disease): Qualifiers: COPD type: unspecified COPD Qualified Code(s): J44.9 - Chronic obstructive pulmonary disease, unspecified Code(s): J44.9 - Chronic obstructive pulmonary
--- NOTE | 2019-12-01 16:06 | P.DS_ITS ---
DS: Diagnosis Admitting Diagnosis Admitting Diagnosis: Generalized abdominal pain Discharge Diagnosis (1) Abdominal pain: Qualifiers: Abdominal location: generalized Qualified Code(s): R10.84 - Generalized abdominal pain Code(s): R10.9 - Unspecified abdominal pain Status: Acute Assessment and Plan: * Suspect in part due to retained barium * Crohn's disease clinically not active but stricture may be contributing to his issues * Upper GI with small-bowel follow-through 12/01 in progress; likely back to [facility] if no obstruction (2) GERD (gastroesophageal reflux disease): Qualifiers: Esophagitis presence: esophagitis presence not specified Qualified Code(s): K21.9 - Gastro-esophageal reflux disease without esophagitis Code(s): K21.9 - Gastro-esophageal reflux disease without esophagitis Status: Acute Assessment and Plan: * Resumed Prevacid (3) Crohn's disease: Qualifiers: Digestive disease complication type: unspecified complication Gastrointestinal tract location: small intestine Qualified Code(s): K50.019 - Crohn's disease of small intestine with unspecified complications Code(s): K50.90 - Crohn's disease, unspecified, without complications Status: Acute Assessment and Plan: * Monitor for signs or symptoms (4) Dysphagia: Qualifiers: Dysphagia type: unspecified Qualified Code(s): R13.10 - Dysphagia, unspecified Code(s): R13.10 - Dysphagia, unspecified Status: Acute Assessment and Plan: * Soft bite size food * Previously passed modified barium swallow (5) Depression: Qualifiers: Active/Remission status: currently active Depression Type: major depressive disorder Major depression episode severity: severe Major depression recurrence: recurrent Psychotic features: without psychotic features Qualified Code(s): F33.2 - Major depressive disorder, recurrent severe without psychotic features Code(s): F32.9 - Major depressive disorder, single episode, unspecified Status: Acute Assessment and Plan: * Resume mirtazapine when oral intake resumes * Avoid benzodiazepines and zolpidem if possible (was previously tapered off these) (6) Protein-calorie malnutrition, moderate: Code(s): E44.0 - Moderate protein-calorie malnutrition Status: Acute Assessment and Plan: * Resume tube feeding (7) AVM (arteriovenous malformation) of duodenum, acquired: Code(s): K31.819 - Angiodysplasia of stomach and duodenum without bleeding Status: Acute Assessment and Plan: * Monitor for signs or symptoms of bleeding (8) Peripheral neuropathy: Qualifiers: Peripheral neuropathy type: polyneuropathy, unspecified Qualified Code(s): G62.9 - Polyneuropathy, unspecified Code(s): G62.9 - Polyneuropathy, unspecified Status: Acute Assessment and Plan: * Resume PT OT (9) Gait disorder: Code(s): R26.9 - Unspecified abnormalities of gait and mobility Status: Acute Assessment and Plan: * Resume PT OT (10) Hyponatremia: Code(s): E87.1 - Hypo-osmolality and hyponatremia Status: Acute Assessment and Plan: * Chronic * Previously due to volume depletion * Should be volume replete * Repeat fractional excretion of sodium (11) Orthostatic hypotension: Code(s): I95.1 - Orthostatic hypotension Status: Acute Assessment and Plan: * Suspect related to his polyneuropathy *
--- NOTE | 2019-12-01 16:06 | PM.DS ---
DS: Diagnosis Admitting Diagnosis Admitting Diagnosis: Generalized abdominal pain Discharge Diagnosis (1) Abdominal pain: Qualifiers: Abdominal location: generalized Qualified Code(s): R10.84 - Generalized abdominal pain Code(s): R10.9 - Unspecified abdominal pain Status: Acute Assessment and Plan: Suspect in part due to retained barium Crohn's disease clinically not active but stricture may be contributing to his issues Upper GI with small-bowel follow-through 12/01 in progress; likely back to [facility] if no obstruction (2) GERD (gastroesophageal reflux disease): Qualifiers: Esophagitis presence: esophagitis presence not specified Qualified Code(s): K21.9 - Gastro-esophageal reflux disease without esophagitis Code(s): K21.9 - Gastro-esophageal reflux disease without esophagitis Status: Acute Assessment and Plan: Resumed Prevacid (3) Crohn's disease: Qualifiers: Digestive disease complication type: unspecified complication Gastrointestinal tract location: small intestine Qualified Code(s): K50.019 - Crohn's disease of small intestine with unspecified complications Code(s): K50.90 - Crohn's disease, unspecified, without complications Status: Acute Assessment and Plan: Monitor for signs or symptoms (4) Dysphagia: Qualifiers: Dysphagia type: unspecified Qualified Code(s): R13.10 - Dysphagia, unspecified Code(s): R13.10 - Dysphagia, unspecified Status: Acute Assessment and Plan: Soft bite size food Previously passed modified barium swallow (5) Depression: Qualifiers: Active/Remission status: currently active Depression Type: major depressive disorder Major depression episode severity: severe Major depression recurrence: recurrent Psychotic features: without psychotic features Qualified Code(s): F33.2 - Major depressive disorder, recurrent severe without psychotic features Code(s): F32.9 - Major depressive disorder, single episode, unspecified Status: Acute Assessment and Plan: Resume mirtazapine when oral intake resumes Avoid benzodiazepines and zolpidem if possible (was previously tapered off these) (6) Protein-calorie malnutrition, moderate: Code(s): E44.0 - Moderate protein-calorie malnutrition Status: Acute Assessment and Plan: Resume tube feeding (7) AVM (arteriovenous malformation) of duodenum, acquired: Code(s): K31.819 - Angiodysplasia of stomach and duodenum without bleeding Status: Acute Assessment and Plan: Monitor for signs or symptoms of bleeding (8) Peripheral neuropathy: Qualifiers: Peripheral neuropathy type: polyneuropathy, unspecified Qualified Code(s): G62.9 - Polyneuropathy, unspecified Code(s): G62.9 - Polyneuropathy, unspecified Status: Acute Assessment and Plan: Resume PT OT (9) Gait disorder: Code(s): R26.9 - Unspecified abnormalities of gait and mobility Status: Acute Assessment and Plan: Resume PT OT (10) Hyponatremia: Code(s): E87.1 - Hypo-osmolality and hyponatremia Status: Acute Assessment and Plan: Chronic Previously due to volume depletion Should be volume replete Repeat fractional excretion of sodium (11) Orthostatic hypotension: Code(s): I95.1 - Orthostatic hypotension Status: Acute Assessment and Plan: Suspect related to his polyneuropathy (12) Pulmonary nodule: Code(s): R91.1 - Solitary pulmonary nodule Status: Acute Assessment and Plan: TB QuantiFERON gold was indeterminate Will need imaging follow-up in a few months if he is a candidate for further intervention (13) COPD (chronic obstructive pulmonary disease): Qualifiers: COPD type: unspecified COPD Qualified Code(s): J44.9 - Chronic obstructive pulmonary disease,
== END 2019-12-01 19:00 | DRG 392 ==
LOC: ANHED 18:26 → ANH3MEDSUR 19:18
PROVIDERS: Emergency Medicine; Nurse Practitioner; Admitting Provider Internal Medicine; Emergency Provider Emergency Medicine; PCP Internal Medicine; Visit Provider Internal Medicine
DX: R10.84 Generalized abdominal pain (principal); K56.699 Other intestinal obstruction unspecified as to partial versus complete obstruction; K50.019 Crohn's disease of small intestine with unspecified complications; E44.0 Moderate protein-calorie malnutrition; E87.1 Hypo-osmolality and hyponatremia; I50.30 Unspecified diastolic (congestive) heart failure; Z68.1 Body mass index [BMI] 19.9 or less, adult; T50.8X5A Adverse effect of diagnostic agents, initial encounter; K21.9 Gastro-esophageal reflux disease without esophagitis; R13.10 Dysphagia, unspecified; K31.819 Angiodysplasia of stomach and duodenum without bleeding; G62.9 Polyneuropathy, unspecified; R26.9 Unspecified abnormalities of gait and mobility; I95.1 Orthostatic hypotension; R91.1 Solitary pulmonary nodule; F41.8 Other specified anxiety disorders; F03.90 Unspecified dementia, unspecified severity, without behavioral disturbance, psychotic disturbance, mood disturbance, and anxiety; N40.0 Benign prostatic hyperplasia without lower urinary tract symptoms; H40.9 Unspecified glaucoma; E78.5 Hyperlipidemia, unspecified; R41.3 Other amnesia; G47.33 Obstructive sleep apnea (adult) (pediatric); J43.9 Emphysema, unspecified; Z87.891 Personal history of nicotine dependence; Z93.1 Gastrostomy status; Z86.010 Personal history of colon polyps; D64.9 Anemia, unspecified; I27.20 Pulmonary hypertension, unspecified
CPT/HCPCS: 36415; 74018; 74176; 74240; 74248; 80048; 80053; 80076; 83605; 83690; 83735; 84100; 85025; 85027; 85610; 86140; 94640; 96361; 96365; 96366; 96367; 96375; 96376; 99285; A9270; G0378; J0744; J0780; J7030; J7512

== ENCOUNTER 2020-01-19 08:48 | Inpatient (IN) | payer MEDICARE, SELFPAY ==
[2020-01-19] VITALS (14 sets, daily range): BP systolic 98–169; BP diastolic 57–76; PULSE 70–102; RESP 16–26; TEMP 36.6–36.7; O2SAT 99–100; BMI 16.6
--- NOTE | ~2020-01-19 | XR_ITS ---
EXAMINATION: XR elbow RT min 3V DATE: 01/19/2020 09:52 INDICATION: Right elbow injury. TECHNIQUE: 4 views of right elbow were obtained. COMPARISON: None. FINDINGS: Bone alignment is normal. No fracture. Joint spaces are normal. There is an enthesophyte at medial humeral epicondyle. No elbow joint effusion. IMPRESSION: 1. No fracture. Reviewed, dictated and finalized at location A. IMPRESSION: 1. No fracture.
--- NOTE | ~2020-01-19 | CT_ITS ---
EXAMINATION: CT brain wo con EXAM DATE: 01/19/2020 09:55 INDICATION: Dizziness. Fall. TECHNIQUE: Spiral CT of the head was performed without contrast. Axial, coronal and sagittal images were reviewed. The dose-length product (DLP) for this examination was 605.33 mGy-cm. The exposure w as tailored according to patient size, and iterative reconstruction (ASIR) was used as additional dos e reduction technique. Comparison is made to prior examination from 11/20/2019. FINDINGS: There is no acute intraparenchymal hemorrhage. No evidence of intraparenchymal brain mass lesion. No evidence of acute infarction. Please note that initial head CT has limited sensitivity f or small or acute infarctions. There is mild to moderate periventricular and subcortical hypodensity, nonspecific but probably related to small vessel ischemic disease. There is mild prominence of the sulci and ventricles related to cerebral atrophy. There is intracranial carotid arteriosclerosis. There are no extra-axial collections. There is no mass effect or midline shift. The orbits are unr emarkable. Soft tissue is unremarkable. The visualized sinuses and mastoid air cells are well aerat ed. IMPRESSION: 1. No acute intracranial findings. 2. Chronic age related findings. Reviewed, dictated and finalized at location B.
--- NOTE | ~2020-01-19 | XR_ITS ---
EXAMINATION: XR elbow LT min 3V DATE: 01/19/2020 09:52 INDICATION: Left elbow injury. TECHNIQUE: 4 views of left elbow were obtained. COMPARISON: None. FINDINGS: Bone alignment is normal. No fracture. There is mild elbow joint osteoarthritis. No elbow j oint effusion. IMPRESSION: 1. No fracture. Reviewed, dictated and finalized at location A. IMPRESSION: 1. No fracture.
--- NOTE | ~2020-01-19 | XR_ITS ---
EXAMINATION: XR hand LT min 3V DATE: 01/19/2020 09:52 INDICATION: Left hand injury. TECHNIQUE: 3 views of left hand were obtained. COMPARISON: None. FINDINGS: Bone alignment is normal. No fracture. There are 2 metallic foreign bodies at first metacar pal. There is mild osteoarthritis of triscaphe joint, second and third metacarpophalangeal joints, an d most of the interphalangeal joints. IMPRESSION: 1. Mild polyarticular osteoarthritis. 2. Two metallic foreign bodies of uncertain etiology at first metacarpal, which may be from prior pennie donis. Correlate with history. Reviewed, dictated and finalized at location A. IMPRESSION: 1. Mild polyarticular osteoarthritis. 2. Two metallic foreign bodies of uncertain etiology at first metacarpal, which may be from prior surgery. Correlate with history.
--- NOTE | 2020-01-19 08:49 | ED.DIZZY ---
HPI - Dizziness General Chief Complaint: Dizziness Stated Complaint: Dizzy Source: patient Mode of arrival: EMS Limitations: no limitations History of Present Illness HPI Narrative: A 79 y/o male presents to the ED, via EMS, with c/o Related Data Home Medications Medication Instructions Recorded Confirmed fluticasone propionate 50 2 spray NASAL DAILY 08/30/19 11/28/19 mcg/actuation nasal spray,suspension Daliresp 500 mcg FEEDING TUBE DAILY 11/28/19 11/28/19 Symbicort 2 puff INHALATION Q12H 11/28/19 11/28/19 midodrine 10 mg FEEDING TUBE 0900,1700 11/28/19 11/28/19 nystatin See Rx Instructions .ROUTE .COMPLEX 11/28/19 11/28/19 potassium, sodium phosphates 1 packet FEEDING TUBE 0900,1700 11/28/19 11/28/19 [[id number]] Allergies Allergy/AdvReac Type Severity Reaction Status Date / Time No Known Allergies Allergy Verified 11/28/19 16:06 Review of Systems Review of Systems: All systems reviewed & are unremarkable except as noted in HPI and below PMFSH Past Medical History Medical History Anemia Angina at rest Anxiety AVM (arteriovenous malformation) of duodenum, acquired Bronchiectasis without complication CHF with left ventricular diastolic dysfunction, NYHA class 1 Chronic GERD Chronic obstructive pulmonary disease Claudication Crohn's disease Crohn's disease Dementia Depression Dysphagia Enlarged prostate slightly Essential (primary) hypertension Falls Gastric ulcer Glaucoma Hyperlipidemia Hyponatremia Ileal stenosis Insomnia skilled nursing use of drug Low back pain at multiple sites Lung nodules Memory loss TDA (obstructive sleep apnea) Peripheral neuropathy Personal history of colonic polyps Pulmonary emphysema Pulmonary hypertension Thrush UTI (urinary tract infection) Surgical History Surgical History History of cardiac catheterization History of hip surgery right Hx of appendectomy Hx of colonoscopy Hx of esophagogastroduodenoscopy Hx of tonsillectomy Family History Family History Father Family history of chronic obstructive pulmonary disease Family history of emphysema Sibling Family history of chronic obstructive pulmonary disease Family history of emphysema Family history of coronary artery disease Mother MVA (motor vehicle accident) Sibling MVA (motor vehicle accident) Social History Social History (Reviewed 01/19/20 @ 08:51 by Zabrina Marte Social History: He lives with his who is his durable power title attorney for healthcare. He is a full code. He has 2 children. 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 [employer] Gender identity (if verbalized by the patient): Male Spiritual care concerns: No Agree to blood products: Yes Discharge Plan Discharge Prescriptions: No Action fluticasone propionate [Allergy Relief (fluticasone)] 50 mcg/actuation spray,suspension 2 spray NASAL DAILY RF: 0 lansoprazole 30 mg Capsule,Delayed Release(Dr/Ec) 30 mg feeding tube DAILY 30 Days Qty: 30 RF: 0 atorvastatin 40 mg Tablet 40 mg feeding tube DAILY 30 Days Qty: 30 RF: 0 acetaminophen [Nortemp] 160 mg/5 mL Suspension 650 mg feeding tube Q4H PRN (Reason: MILD PAIN/ FEVER) 30 Days RF: 0 folic acid 1 mg Tablet 1 mg feeding tube DAILY Qty: 30 RF: 0 mirtazapine [Remeron SolTab] 15 mg Tablet,Disintegrating 15 mg feeding tube HS Qty: 30 RF: 0 ipratropium bromide 0.02 % Solution 0.5 mg inhalation Q4HRT PRN (Reason: Shortness Of Breath) 30 Days RF: 0 albut
--- NOTE | 2020-01-19 09:03 | ED.DIZZY ---
HPI - Dizziness General Chief Complaint: Dizziness Stated Complaint: Dizzy Time Seen by Provider: 01/19/20 09:02 Source: patient and family Mode of arrival: EMS Limitations: no limitations History of Present Illness HPI Narrative: A 79 y/o male presents to the ED, via EMS, with c/o dizziness. Pt states that the dizziness started 1 week ago and has been intermittent since. The dizziness only occurs when he gets up and is up for awhile. He notes that he has also been having frequent falls and fell twice this morning. Pt reports that he had a feeding tube removed 1 week ago, and has since lost 7lbs. Pt had a feeding tube for a viral infection that caused weakness and loss of appetite. Patient's family states that he has been eating 3 meals a day and snacks daily. The family also notes that they called his PCP's office today for the dizziness and falls, and staff advised him to be evaluated. The patient has been having low blood pressure in the morning for the past month. He did not take his Midodrine this morning. Dr. Bustamante is his PCP. He denies HI, knee pain, and hip pain. MD elicited complaint: dizziness Onset (ago): week(s) (1) Context: change in body position History of similar symptoms: Yes Exacerbating factors: movement/ambulation Associated symptoms: denies other symptoms Related Data Home Medications Medication Instructions Recorded Confirmed fluticasone propionate 50 2 spray NASAL DAILY 08/30/19 01/19/20 mcg/actuation nasal spray,suspension Daliresp 500 mcg PO DAILY 11/28/19 01/19/20 budesonide-formoterol [Symbicort] 2 puff INHALATION Q12H 11/28/19 01/19/20 midodrine 10 mg FEEDING TUBE 0800,1400 11/28/19 01/19/20 alprazolam 0.5 mg PO PRN PRN 01/19/20 01/19/20 folic acid 1 mg PO DAILY 01/19/20 01/19/20 hydrochlorothiazide 12.5 mg PO DAILY 01/19/20 01/19/20 lansoprazole 30 mg PO DAILY 01/19/20 01/19/20 khllemlp-ztn-hmrdo-vit K-lycop 400 tablet PO DAILY 01/19/20 01/19/20 [Men's Multivitamin] omeprazole 20 mg PO DAILY 01/19/20 01/19/20 timolol maleate 1 drp OPHTHALMIC (EYE) DAILY 01/19/20 01/19/20 zolpidem 5 mg PO HS PRN 01/19/20 01/19/20 Allergies Allergy/AdvReac Type Severity Reaction Status Date / Time No Known Allergies Allergy Verified 01/19/20 14:46 Review of Systems Review of Systems: All systems reviewed & are unremarkable except as noted in HPI and below Cardiovascular: Cardiovascular: Denies chest pain Respiratory: Respiratory: Denies cough and Denies dyspnea Gastrointestinal: Gastrointestinal: Denies abdominal pain Musculoskeletal: Musculoskeletal: Denies arthralgias (Hip, knee) Neurologic: Reports dizziness and Denies other (HI) [facility] Past Medical History Medical History (Updated 01/19/20 @ 17:50 by Elke Dunaway MD) Anemia Angina at rest Anxiety AVM (arteriovenous malformation) of duodenum, acquired Bronchiectasis without complication CHF with left ventricular diastolic dysfunction, NYHA class 1 Chronic GERD Chronic obstructive pulmonary disease Claudication COPD (chronic obstructive pulmonary disease) Crohn's disease Crohn's disease Dementia Depression DVT prophylaxis Dysphagia Enlarged prostate slightly Essential (primary) hypertension Falls Gastric ulcer GERD (gastroesophageal reflux disease) Glaucoma Hyperlipidemia Hypokalemia Hyponatremia Hyponatremia Chronic Ileal stenosis Insomnia senior living use of drug Low back pain at multiple sites Lung nodules Memory loss Orthostatic hypotension TAD (obstructive sleep apnea) Pancytopenia Peripheral neuropathy Personal history of colonic polyps Pulmonary emphysema Pulmonary hypertension Thrush Uses feeding tube UTI (urinary tract infection) Surgical History Surgical History History of cardiac catheterization History of hip surgery right Hx of appendectomy Hx of colonoscopy Hx of esophagogastroduodenoscopy Hx of tonsillectomy Family History Family History (Rev
--- NOTE | 2020-01-19 09:20 | ECG_ITS ---
Measurements Intervals [place] Rate: 74 P: 81 AK: 180 QRS: -32 QRSD: 96 T: 45 QT: 395 QTc: 439 Interpretive Statements SINUS RHYTHM LEFT AXIS DEVIATION CANNOT RULE OUT SEPTAL INFARCT, AGE INDETERMINATE PEAKED T WAVES- CONSIDER HYPERKALEMIA OR ISCHEMIA BASELINE ARTIFACT- I, II, III, AVR, AVL, AVF, V1 ABNORMAL ECG Electronically Signed On 01-19-2020 10:23:20 CDT by Pedro Carson D.O.
[2020-01-19 09:46] LABS: Basophils Percent Auto 0.2 % (0.2-1.2); Eosinophils Absolute Auto 0.1 K/mm3 (0-0.3); Eosinophils Percent Auto 0.5 % (0-4.4); Hematocrit 32.1 % (42.0-52.0); Hemoglobin 10.3 g/dL (14.0-18.0); Immature Granulocyte Absolute 0.04 K/mm3 (0.00-0.031); Immature Granulocyte Percent A 0.4 % (0-0.5); Lymphocytes Percent Auto 10.2 % (18.3-44.2); Mean Corpuscular HGB Conc 32.1 g/dl (32-36); Mean Corpuscular Hemoglobin 31.6 pg (26-34); Mean Corpuscular Volume 98.5 fl (80-100); Mean Platelet Volume 8.8 fl (7.4-10.4); Monocytes Absolute Auto 0.7 K/mm3 (0.1-0.6); Monocytes Percent Auto 6.7 % (2.6-8.5); Platelet Count Result 258 k/mm3 (150-375); Red Blood Count 3.26 M/mm3 (4.6-6.20); Red Cell Distribution Width 15.6 % (11.5-14.5); White Blood Count 9.8 K/mm3 (4.5-10.0)
[2020-01-19 09:58] LABS: Alanine Aminotransferase 20 U/L (4-50); Albumin Level 3.2 g/dL (3.5-5.1); Alkaline Phosphatase 85 U/L (38-126); Aspartate Amino Transferase 26 U/L (17-59); Bilirubin,Total 0.4 mg/dL (0.2-1.3); Blood Urea Nitrogen 23 mg/dL (9-20); Calcium 8.8 mg/dL (8.4-10.2); Carbon Dioxide 26 mmol/L (22-30); Chloride 99 mmol/L (98-107); Estimated CRCL calculation 50 ml/min; Estimated Glomerular Filt Rate > 60; Glucose 85 mg/dL (75-110); Potassium 3.7 mmol/L (3.4-5.0); Sodium 129 mmol/L (137-145)
[2020-01-19] MEDS: SODIUM CHLORIDE 0.9% IV 1,000 ML 999 ML IV CONT (10:08)
[2020-01-19] MEDS: MIDODRINE HCL 10 MG TABLET PO (11:22)
[2020-01-19 11:25] LABS: Add Urine Microscopic? NO; Appearance Urine Clear (Clear); Bilirubin Urine Negative (Negative); Blood Urine Negative (Negative); Color Urine Yellow (Yellow); Glucose Urine UA Negative (Negative); Ketones Urine Negative (Negative); Leukocyte Esterase Ur Negative LEU/UL (Negative); Nitrate Urine Negative (Negative); Protein Urine Negative (Negative); Specific Grav Ur 1.013 (1.001-1.035); Urobilinogen Urine Negative mg/dL (<2.0)
--- NOTE | 2020-01-19 14:24 | ADMGEN ---
This patient, Stanley Cook, was admitted to 3 Medical Room 345-01. Patient/family oriented to hospital policies and general routines including ID bracelet, bed and alarms, visiting hours, pain management, procedures, bathroom and other care routines, personal items, smoking policy, room service/diet, and visiting hours. Valuables list has been completed. Information on how to activate the Rapid Response Team has been discussed. Patient/Family are encouraged to report perceived risks to care and to ask questions if they do not understand what they are told or what they should do.
[2020-01-19] MEDS: LACTATED RINGERS 1,000 ML 125 ML IV CONT ×2 (14:44→22:33)
[2020-01-19] MEDS: TAMSULOSIN HCL 0.4 MG CAPSULE PO (22:32)
[2020-01-19] MEDS: ZOLPIDEM TARTRATE 5 MG TABLET PO (22:32)
--- NOTE | 2020-01-19 23:42 | PM.IMHP ---
H&P: HPI History of Present Illness Chief complaint: orthostatic hypotension Narrative: Stanley Cook is a 79 year old male who was last admitted here on November 29 of this year due to weight loss and abdominal pain. The patient did have a feeding tube and was getting tube feedings. The patient recently was in a rehab facility in just came home. The patient had his tube feeding removed about a week ago. He has lost 7 lb since then. Today the patient complained of some dizziness it started about a week ago and it has been intermittent on and off since then. His is currently in the intensive care unit and he has had a lot of worry over her. The patient stated that the dizziness occurs when he gets up and is up for while. He has had been having frequent falls. He fell twice today. He says that he has been eating 3 meals and a snack. He has been having a low blood pressure in the morning for the last month. He does take midodrine but did not take it this morning. He has a niece that has been staying with him and a [id number] that comes 3 times a week and a nephew that comes twice a week to check up on him. So he is not home alone. He had an x-ray of his left hand which shows 2 metabolic foreign bodies most likely due to surgery. Otherwise poly articular osteoarthritis. X-ray of the right elbow shows normal bony alignment. No fracture on the left elbow x-ray. CT of the head was showing nothing acute just chronic age-related findings. And IV fluids. Like his blood pressures and been going up and down all day. Date of service is 01/19/2020. Review of Systems Review of Systems: All systems reviewed & are unremarkable except as noted in HPI and below Constitutional: Constitutional: Reports as per HPI and Reports no additional constitutional complaints Eyes: Eyes: Reports as per HPI and Reports no additional eye complaints ENT: Reports system reviewed and no additional complaints, except as documented and Reports Normal hearing present Cardiovascular: Cardiovascular: Reports no additional cardiovascular complaints Respiratory: Respiratory: Reports no additional respiratory complaints and Reports no additional respiratory complaints Gastrointestinal: Gastrointestinal: Reports as per HPI and Reports no additional gastrointestinal complaints Musculoskeletal: Musculoskeletal: Reports no additional musculoskeletal complaints Integumentary/Breasts: Skin/Breast: Reports system reviewed and no additional complaints, except as docu and Reports as per HPI Neurologic: Reports system reviewed and no additional complaints, except as documented, Reports as per HPI and Reports Normal hearing present Psychiatric: Psychiatric: Reports no additional psychiatric complaints and Reports as per HPI Endocrine: Endocrine: Reports no additional endocrine complaints Hematologic/Lymphatic: Hematologic/Lymphatic: Reports no additional hematologic/lymphatic complaints Allergic/Immunologic: Allergic/Immunologic: Reports no additional allergic/immunologic complaints [facility] Past Medical History Medical History (Updated 01/19/20 @ 23:50 by Ary Rahman NP) Anemia Angina at rest Anxiety AVM (arteriovenous malformation) of duodenum, acquired Bronchiectasis without complication CHF with left ventricular diastolic dysfunction, NYHA class 1 Chronic GERD Chronic obstructive pulmonary disease Claudication COPD (chronic obstructive pulmonary disease) Crohn's disease Dementia Depression DVT prophylaxis Dysphagia Enlarged prostate slightly Essential (primary) hypertension Falls Gastric ulcer GERD (gastroesophageal reflux disease) Glaucoma Hyperlipidemia Hypokalemia Hyponatremia Chronic Ileal stenosis Insomnia [facility] use of drug Low back pain at multiple sites Lung nodules Memory loss Orthostatic hypotension TAD (obstructive sleep apnea) Pancytopenia Peripheral neuropathy Personal history of colonic polyps Pulmonary emphysema Pul
[2020-01-20] VITALS (13 sets, daily range): BP systolic 100–171; BP diastolic 47–78; PULSE 66–88; RESP 14–18; TEMP 36.4–36.8; O2SAT 99
[2020-01-20] MEDS: ACETAMINOPHEN 325 MG TABLET 650 MG PO ×3 (03:48→23:24)
[2020-01-20 06:01] LABS: Basophils Percent Auto 0.3 % (0.2-1.2); Eosinophils Absolute Auto 0.1 K/mm3 (0-0.3); Hematocrit 27.9 % (42.0-52.0); Immature Granulocyte Absolute 0.02 K/mm3 (0.00-0.031); Immature Granulocyte Percent A 0.3 % (0-0.5); Lymphocytes Absolute Auto 0.79 K/mm3 (0.9-3.2); Lymphocytes Percent Auto 12.8 % (18.3-44.2); Mean Corpuscular HGB Conc 32.3 g/dl (32-36); Mean Corpuscular Hemoglobin 31.7 pg (26-34); Mean Corpuscular Volume 98.2 fl (80-100); Mean Platelet Volume 8.7 fl (7.4-10.4); Monocytes Absolute Auto 0.5 K/mm3 (0.1-0.6); Monocytes Percent Auto 8.2 % (2.6-8.5); Neutrophils Absolute Auto 4.8 K/mm3 (1.3-6.7); Neutrophils Percent Auto 77.4 % (45.5-73.1); Platelet Count Result 232 k/mm3 (150-375); Red Blood Count 2.84 M/mm3 (4.6-6.20); Red Cell Distribution Width 15.3 % (11.5-14.5); White Blood Count 6.2 K/mm3 (4.5-10.0)
[2020-01-20 06:13] LABS: Alanine Aminotransferase 16 U/L (4-50); Albumin Level 2.5 g/dL (3.5-5.1); Alkaline Phosphatase 74 U/L (38-126); Aspartate Amino Transferase 23 U/L (17-59); Bilirubin,Total 0.3 mg/dL (0.2-1.3); Blood Urea Nitrogen 16 mg/dL (9-20); Calcium 8.1 mg/dL (8.4-10.2); Carbon Dioxide 25 mmol/L (22-30); Chloride 101 mmol/L (98-107); Estimated CRCL calculation 50 ml/min; Estimated Glomerular Filt Rate > 60; Glucose 81 mg/dL (75-110); Potassium 3.4 mmol/L (3.4-5.0); Sodium 130 mmol/L (137-145)
[2020-01-20] MEDS: LACTATED RINGERS 1,000 ML 125 ML IV CONT ×2 (08:55→17:37)
[2020-01-20] MEDS: MIDODRINE HCL 10 MG TABLET PO ×2 (08:57→13:06)
[2020-01-20] MEDS: PANTOPRAZOLE 40 MG TABLET PO (08:59)
[2020-01-20] MEDS: THERAPEUTIC MULTIVITAMINS/MINERALS TAB (*BKC) 1 TABLET PO (08:59)
[2020-01-20] MEDS: FOLIC ACID 1 MG TABLET PO (08:59)
[2020-01-20] MEDS: FLUTICASONE PROPIONATE 0.05% NA SPR 16 GM BTL (*BKC) 2 SPRAY NASAL (08:59)
[2020-01-20] MEDS: ROFLUMILAST 500 MCG TABLET PO (08:59)
[2020-01-20] MEDS: TIMOLOL MALEATE 0.25% OP SOLN 5 ML BOTTLE 1 DROP EACH EYE (09:00)
[2020-01-20] MEDS: POTASSIUM CHLORIDE 20 MEQ TABLET 40 MEQ PO (09:02)
--- NOTE | 2020-01-20 09:14 | PCOTNOTE ---
Attempted to see pt. this am. Pt had an episode of chest pain while with physical therapy. Will evaluate for OT after MD sees pt.
--- NOTE | 2020-01-20 12:19 | PM.IMPN ---
Progress Note: A&P Assessment and Plan (1) Orthostatic hypotension: Code(s): I95.1 - Orthostatic hypotension Status: Acute Assessment and Plan: Daily orthostatic blood pressures. Continue midodrine. Holding hydrochlorothiazide. Continue with IV fluids. The patient stated he is starting to feel better but had another episode this a.m.. (2) COPD (chronic obstructive pulmonary disease): Qualifiers: COPD type: unspecified COPD Qualified Code(s): J44.9 - Chronic obstructive pulmonary disease, unspecified Code(s): J44.9 - Chronic obstructive pulmonary disease, unspecified Status: Acute Assessment and Plan: Continue with Daliresp and inhalers from home. (3) Syncope: Code(s): R55 - Syncope and collapse Status: Acute Assessment and Plan: Most likely due to orthostatic hypotension. Patient is on midodrine continue with that. Continue with IV fluids. (4) Anxiety: Code(s): F41.9 - Anxiety disorder, unspecified Status: Acute Assessment and Plan: Continue Xanax (5) CHF with left ventricular diastolic dysfunction, NYHA class 1: Code(s): I50.30 - Unspecified diastolic (congestive) heart failure Status: Acute Assessment and Plan: Hold diuretics at this time and monitor fluid status closely since receiving IV hydration Last echo 12/28 EF 55% (6) Generalized weakness: Code(s): R53.1 - Weakness Status: Acute Assessment and Plan: PT OT evaluation. Very poor prognosis. Apparently had improved after his last hospitalization to the point that PEG tube was even removed. (7) Hyponatremia: Code(s): E87.1 - Hypo-osmolality and hyponatremia Status: Acute Assessment and Plan: Sodium 130 and typically runs from 125-130 (8) Anemia: Code(s): D64.9 - Anemia, unspecified Status: Acute Assessment and Plan: Hemoglobin 9 and unchanged, chronic disease (9) DVT prophylaxis: Code(s): Z29.9 - Encounter for prophylactic measures, unspecified Status: Acute Assessment and Plan: lovenox Subjective Date/time seen: 01/20/20 12:19 Interval history: Date of visit 01/19. 71-year-old white male COPD and history of Crohn's disease and orthostatic hypotension admitted after being discharged 1 week ago from the long term with increasing weakness, decreased p.o. intake, and falling with syncope. Got lightheaded again this a.m. in the bathroom after walking with PT and noted to have low blood pressure again Exam Narrative: Exam Narrative: Blood pressure 104/52 pulse is 70 afebrile Pupils equal reactive to light sclera anicteric Lungs clear CV regular rate rhythm Abdomen is soft nontender no masses, scar from previous PEG tube site Extremities without edema distal pulses are 1+ Neuro alert pleasant cooperative no focal deficits Objective Data Vital Signs Vital Signs: Vital Signs - 24 hr 01/19/20 12:32 01/19/20 12:33 01/19/20 12:34 Temperature Pulse Rate 78 73 90 Respiratory Rate Blood Pressure 150/74 H 131/76 98/57 L Pulse Oximetry 01/19/20 16:00 01/19/20 16:41 01/19/20 20:00 Temperature 36.7 C Pulse Rate 76 90 77 Respiratory Rate 18 Blood Pressure 109/60 Pulse Oximetry 99 01/19/20 21:18 01/20/20 00:00 01/20/20 04:00 Temperature 36.7 C Pulse Rate 87 83 76 Respiratory Rate 18 Blood Pressure 123/63 Pulse Oximetry 99 01/20/20 04:35 01/20/20 08:00 01/20/20 08:13 Temperature 36.5 C Pulse Rate 72 74 70 Respiratory Rate 16 Blood Pressure 137/67 150/71 H 104/53 L Pulse Oximetry 99 01/20/20 08:14 Temperature Pulse Rate 82 Respiratory Rate Blood Pressure 100/47 L Pulse Oximetry Intake/Output Intake/Output: Intake & Output 01/17/20 01/18/20 01/19/20 01/20/20 23:59 23:59 23:59 23:59 Intake Total 2340 1495 Output Total 280 Balance 2060 1495 Meds/Results Medications: Active Medications G
--- NOTE | 2020-01-20 13:46 | PCOTNOTE ---
Attempted OT evaluation this pm; pt. leaving room to go visit in ICU. Will attempt again tomorrow.
[2020-01-20] MEDS: IPRATROPIUM BR 0.02% INH SOLN 0.5 MG/2.5 ML VIAL INHALATION (19:25)
[2020-01-20] MEDS: ENOXAPARIN 40 MG/0.4 ML SYRINGE SUB-Q (20:12)
[2020-01-20] MEDS: ALPRAZOLAM 0.5 MG TABLET PO (20:12)
[2020-01-20] MEDS: TAMSULOSIN HCL 0.4 MG CAPSULE PO (20:13)
[2020-01-20] MEDS: ZOLPIDEM TARTRATE 5 MG TABLET PO (20:13)
[2020-01-21] VITALS (8 sets, daily range): BP systolic 90–155; BP diastolic 46–74; PULSE 62–73; RESP 14–17; TEMP 36.4–36.9; O2SAT 98–99
[2020-01-21] MEDS: LACTATED RINGERS 1,000 ML 125 ML IV CONT (01:48)
[2020-01-21 06:06] LABS: Basophils Percent Auto 0.4 % (0.2-1.2); Eosinophils Absolute Auto 0.1 K/mm3 (0-0.3); Eosinophils Percent Auto 1.4 % (0-4.4); Hematocrit 26.9 % (42.0-52.0); Immature Granulocyte Absolute 0.01 K/mm3 (0.00-0.031); Immature Granulocyte Percent A 0.2 % (0-0.5); Lymphocytes Absolute Auto 1.06 K/mm3 (0.9-3.2); Lymphocytes Percent Auto 21.5 % (18.3-44.2); Mean Corpuscular HGB Conc 33.5 g/dl (32-36); Mean Corpuscular Hemoglobin 32.3 pg (26-34); Mean Corpuscular Volume 96.4 fl (80-100); Mean Platelet Volume 8.8 fl (7.4-10.4); Monocytes Absolute Auto 0.5 K/mm3 (0.1-0.6); Monocytes Percent Auto 9.1 % (2.6-8.5); Neutrophils Absolute Auto 3.3 K/mm3 (1.3-6.7); Neutrophils Percent Auto 67.4 % (45.5-73.1); Platelet Count Result 223 k/mm3 (150-375); Red Blood Count 2.79 M/mm3 (4.6-6.20); Red Cell Distribution Width 14.9 % (11.5-14.5); White Blood Count 4.9 K/mm3 (4.5-10.0)
[2020-01-21 06:24] LABS: Blood Urea Nitrogen 13 mg/dL (9-20); Calcium 8.4 mg/dL (8.4-10.2); Carbon Dioxide 27 mmol/L (22-30); Chloride 102 mmol/L (98-107); Estimated CRCL calculation 57 ml/min; Estimated Glomerular Filt Rate > 60; Glucose 79 mg/dL (75-110); Potassium 3.6 mmol/L (3.4-5.0); Sodium 128 mmol/L (137-145)
[2020-01-21] MEDS: PANTOPRAZOLE 40 MG TABLET PO (08:56)
[2020-01-21] MEDS: FLUTICASONE PROPIONATE 0.05% NA SPR 16 GM BTL (*BKC) 2 SPRAY NASAL (08:56)
[2020-01-21] MEDS: THERAPEUTIC MULTIVITAMINS/MINERALS TAB (*BKC) 1 TABLET PO (08:56)
[2020-01-21] MEDS: FOLIC ACID 1 MG TABLET PO (08:56)
[2020-01-21] MEDS: MIDODRINE HCL 10 MG TABLET PO ×2 (08:56→14:53)
[2020-01-21] MEDS: TIMOLOL MALEATE 0.25% OP SOLN 5 ML BOTTLE 1 DROP EACH EYE (08:56)
[2020-01-21] MEDS: ROFLUMILAST 500 MCG TABLET PO (08:56)
--- NOTE | 2020-01-21 09:50 | PM.IMPN ---
Progress Note: A&P Assessment and Plan (1) Orthostatic hypotension: Code(s): I95.1 - Orthostatic hypotension Status: Acute Assessment and Plan: Daily orthostatic blood pressures. Continue midodrine. Holding hydrochlorothiazide. stop IV fluids. The patient stated he is starting to feel better , this is a chronic longstanding problem (2) COPD (chronic obstructive pulmonary disease): Qualifiers: COPD type: unspecified COPD Qualified Code(s): J44.9 - Chronic obstructive pulmonary disease, unspecified Code(s): J44.9 - Chronic obstructive pulmonary disease, unspecified Status: Acute Assessment and Plan: Continue with Daliresp and inhalers from home. (3) Syncope: Code(s): R55 - Syncope and collapse Status: Acute Assessment and Plan: Most likely due to orthostatic hypotension. Patient is on midodrine continue with that. no change in moniter 01/19 when became dizzy with hypotension (4) Anxiety: Code(s): F41.9 - Anxiety disorder, unspecified Status: Acute Assessment and Plan: Continue Xanax (5) CHF with left ventricular diastolic dysfunction, NYHA class 1: Code(s): I50.30 - Unspecified diastolic (congestive) heart failure Status: Acute Assessment and Plan: Hold diuretics at this time and monitor fluid status closely Last echo 12/28 EF 55% (6) Generalized weakness: Code(s): R53.1 - Weakness Status: Acute Assessment and Plan: PT OT evaluation. Very poor prognosis. Apparently had improved after his last hospitalization to the point that PEG tube was even removed. (7) Hyponatremia: Code(s): E87.1 - Hypo-osmolality and hyponatremia Status: Acute Assessment and Plan: Sodium 128 and typically runs from 125-130 (8) Anemia: Code(s): D64.9 - Anemia, unspecified Status: Acute Assessment and Plan: Hemoglobin 9 and unchanged, chronic disease (9) DVT prophylaxis: Code(s): Z29.9 - Encounter for prophylactic measures, unspecified Status: Acute Assessment and Plan: lovenox Subjective Date/time seen: 01/21/20 09:50 Interval history: Date of visit 01/20. 71-year-old white male COPD and history of Crohn's disease and orthostatic hypotension admitted after being discharged 1 week ago from the residential with increasing weakness, decreased p.o. intake, and falling with syncope. Slept better and appetite fair Exam Narrative: Exam Narrative: Blood pressure 110 systolic lying to 92/5o standing, pulse is 70 afebrile Pupils equal reactive to light sclera anicteric Lungs clear CV regular rate rhythm Abdomen is soft nontender no masses, scar from previous PEG tube site Extremities without edema distal pulses are 1+ Neuro alert pleasant cooperative no focal deficits Objective Data Vital Signs Vital Signs: Vital Signs - 24 hr 01/20/20 12:00 01/20/20 13:48 01/20/20 16:00 Temperature 36.8 C Pulse Rate 82 67 67 Respiratory Rate 14 Blood Pressure 171/78 H Pulse Oximetry 99 01/20/20 19:31 01/20/20 19:40 01/20/20 20:00 Temperature Pulse Rate 88 82 68 Respiratory Rate 18 18 Blood Pressure Pulse Oximetry 01/20/20 20:03 01/21/20 00:00 01/21/20 04:00 Temperature 36.4 C L Pulse Rate 66 68 62 Respiratory Rate 16 Blood Pressure 140/68 Pulse Oximetry 99 01/21/20 04:59 01/21/20 08:00 01/21/20 09:15 Temperature 36.4 C L Pulse Rate 66 71 Respiratory Rate 14 Blood Pressure 133/74 110/62 92/49 L Pulse Oximetry 98 01/21/20 09:16 Temperature Pulse Rate Respiratory Rate Blood Pressure 90/46 L Pulse Oximetry Intake/Output Intake/Output: Intake & Output 01/18/20 01/19/20 01/20/20 01/21/20 23:59 23:59 23:59 23:59 Intake Total 2340 3350 2720 Output Total 280 Balance 2060 3350 2720 Meds/Results Medications: Active Medications Generic Name Dose Route Start Last Admin Trade Name Paulo
[2020-01-21] MEDS: ACETAMINOPHEN 325 MG TABLET 650 MG PO (20:14)
[2020-01-21] MEDS: TAMSULOSIN HCL 0.4 MG CAPSULE PO (20:14)
[2020-01-21] MEDS: ENOXAPARIN 40 MG/0.4 ML SYRINGE SUB-Q (20:15)
[2020-01-21] MEDS: ZOLPIDEM TARTRATE 5 MG TABLET PO (22:17)
[2020-01-21] MEDS: ALPRAZOLAM 0.5 MG TABLET PO (22:17)
[2020-01-22 05:02] VITALS: BP 139/72; PULSE 76; RESP 16; TEMP 36.5; O2SAT 99
[2020-01-22 07:30] LABS: Blood Urea Nitrogen 13 mg/dL (9-20); Calcium 8.4 mg/dL (8.4-10.2); Carbon Dioxide 26 mmol/L (22-30); Chloride 102 mmol/L (98-107); Estimated CRCL calculation 50 ml/min; Estimated Glomerular Filt Rate > 60; Glucose 79 mg/dL (75-110); Potassium 3.2 mmol/L (3.4-5.0); Sodium 128 mmol/L (137-145)
[2020-01-22 08:00] VITALS: BP 122/61; PULSE 72; O2SAT 97
[2020-01-22] MEDS: ROFLUMILAST 250 MCG 2 EACH PO (08:28)
[2020-01-22] MEDS: FLUTICASONE PROPIONATE 0.05% NA SPR 16 GM BTL (*BKC) 2 SPRAY NASAL (08:28)
[2020-01-22] MEDS: THERAPEUTIC MULTIVITAMINS/MINERALS TAB (*BKC) 1 TABLET PO (08:28)
[2020-01-22] MEDS: MIDODRINE HCL 10 MG TABLET PO ×2 (08:28→13:39)
[2020-01-22] MEDS: TIMOLOL MALEATE 0.25% OP SOLN 5 ML BOTTLE 1 DROP EACH EYE (08:28)
[2020-01-22] MEDS: PANTOPRAZOLE 40 MG TABLET PO (08:28)
[2020-01-22] MEDS: FOLIC ACID 1 MG TABLET PO (08:29)
[2020-01-22 08:47] VITALS: BP 87/48; PULSE 80; O2SAT 99
[2020-01-22 08:48] VITALS: BP 82/43; PULSE 82; O2SAT 99
--- NOTE | 2020-01-22 10:55 | PC.NURSE ---
Patient to ICU per wheelchair to visit his spouse. RN escorted patient and hospital senior credit officer will remain with patient. Dr. Leal is aware that the patient is off unit and discharge is anticipated today.
--- NOTE | 2020-01-22 11:30 | PCOTNOTE ---
Patient unavailable to be seen for OT, with in ICU. Patient being discharged this date, will see if available later today.
[2020-01-22 11:34] VITALS: BMI 16.6
[2020-01-22] MEDS: POTASSIUM CHLORIDE 20 MEQ TABLET 40 MEQ PO (13:38)
--- NOTE | 2020-01-22 18:21 | PM.DS ---
DS: Diagnosis Admitting Diagnosis Admitting Diagnosis: Orthostatic hypotension Discharge Diagnosis (1) Orthostatic hypotension: Code(s): I95.1 - Orthostatic hypotension Status: Acute Assessment and Plan: Continue midodrine as before. Discontinue hydrochlorothiazide. . The patient stated he is starting to feel better , this is a chronic longstanding problem. Was hydrated while here (2) COPD (chronic obstructive pulmonary disease): Qualifiers: COPD type: unspecified COPD Qualified Code(s): J44.9 - Chronic obstructive pulmonary disease, unspecified Code(s): J44.9 - Chronic obstructive pulmonary disease, unspecified Status: Acute Assessment and Plan: Continue with Daliresp and inhalers from home. (3) Syncope: Code(s): R55 - Syncope and collapse Status: Acute Assessment and Plan: due to orthostatic hypotension. Patient is on midodrine continue with that. no change in heart rate when became hypotensive (4) Anxiety: Code(s): F41.9 - Anxiety disorder, unspecified Status: Acute Assessment and Plan: Continue Xanax (5) CHF with left ventricular diastolic dysfunction, NYHA class 1: Code(s): I50.30 - Unspecified diastolic (congestive) heart failure Status: Acute Assessment and Plan: Hold diuretics at this time and monitor fluid status closely Last echo 12/28 EF 55% (6) Generalized weakness: Code(s): R53.1 - Weakness Status: Acute Assessment and Plan: PT OT evaluation. Very poor prognosis. Apparently had improved after his last hospitalization to the point that PEG tube was even removed. (7) Hyponatremia: Code(s): E87.1 - Hypo-osmolality and hyponatremia Status: Acute Assessment and Plan: Sodium 128 and typically runs from 125-130 (8) Anemia: Code(s): D64.9 - Anemia, unspecified Status: Acute Assessment and Plan: Hemoglobin 9 and unchanged, chronic disease DS: Summary Hospital Course Hospital Course: 71-year-old white male with chronic orthostatic hypotension admitted with weakness and falling at home 1 week after discharge from the group home after his PEG tube had been removed. He was hydrated here diuretic was discontinued and still had some difficulty with orthostasis which is been ongoing. Been evaluated for adrenal insufficiency in the past and other etiologies. He is doing better and up with physical therapy this time of discharge. He has home health care, his nieces living with him, and [id number]'s nearby. Long-term prognosis is poor will follow up with primary care as well as Dr. Mills Time Spent with Patient Time attestation: Total time spent providing and/or coordinating discharge services: 35 minutes Exam Narrative: Exam Narrative: Condition on discharge Blood pressure 92/40 pulse is 82 Lungs clear CV regular rate rhythm Abdomen is soft Extremities without edema Neuro alert pleasant cooperative no focal deficit Date of discharge was in better spirits today debrided breakfast but with still somewhat down due to this illness and impending of his DS: Data Data Completed and Pending Labs on day of discharge: Labs from last 24 hours 01/22/20 05:10 Sodium 128 L Potassium 3.2 L Chloride 102 Carbon Dioxide 26 BUN 13 Creatinine 0.70 Estim Creat Clear Calc 50 Estimated GFR > 60 Glucose 79 Calcium 8.4 Discharge Plan Discharge Attending physician on discharge: Socrates Leal Discharging Clinician: Socrates Leal Patient Disposition: Home Health Service Activity: as tolerated Diet: regular Discharge Instructions: Per care coordination: Patient is current with [facility] for penitentiary, PT, and OT services; resume services. They can be reached at [phone]. Patient Instructions: Antibiotic Form Stand Alone Forms: General Discharge Information Follow-up/R
== END 2020-01-22 14:05 | disposition home health service (06) | DRG 312 ==
LOC: ANHED 12:40 → ANH3MED 13:08
PROVIDERS: Admitting Provider Hospitalist; Emergency Provider General Practice; PCP Internal Medicine; Visit Provider Internal Medicine
DX: I95.1 Orthostatic hypotension (principal); E87.1 Hypo-osmolality and hyponatremia; K50.90 Crohn's disease, unspecified, without complications; W19.XXXA Unspecified fall, initial encounter; Z91.81 History of falling; F41.8 Other specified anxiety disorders; I50.9 Heart failure, unspecified; K21.9 Gastro-esophageal reflux disease without esophagitis; F03.90 Unspecified dementia, unspecified severity, without behavioral disturbance, psychotic disturbance, mood disturbance, and anxiety; R13.10 Dysphagia, unspecified; N40.0 Benign prostatic hyperplasia without lower urinary tract symptoms; I11.0 Hypertensive heart disease with heart failure; H40.9 Unspecified glaucoma; E78.5 Hyperlipidemia, unspecified; G47.00 Insomnia, unspecified; J43.9 Emphysema, unspecified; G47.33 Obstructive sleep apnea (adult) (pediatric); Z86.010 Personal history of colon polyps; R91.8 Other nonspecific abnormal finding of lung field; I27.20 Pulmonary hypertension, unspecified; Z87.891 Personal history of nicotine dependence; F41.9 Anxiety disorder, unspecified
CPT/HCPCS: 36415; 70450; 73080; 73130; 80048; 80053; 81003; 85025; 93005; 94640; 96360; 96361; 97110; 97116; 97162; 97165; 99285; A9270; G0378; J1650; J7030; J7120

== ENCOUNTER 2020-01-25 10:25 | Emergency (ER) | payer MEDICARE, SELFPAY ==
--- NOTE | ~2020-01-25 | XR_ITS ---
XR chest 2V DATE: 01/25/2020 11:42 INDICATION: Shortness of breath, productive cough, malaise TECHNIQUE: PA and lateral views COMPARISON: 11/24/2019 portable AP chest FINDINGS: Bilateral hyperinflation, with relative flattening of the diaphragm and increased retroster nal airspace, suggesting COPD. No pulmonary infiltrate or consolidation, pleural effusion or pulmonary vascular congestion or pneumo thorax. Normal heart size. There is aortic calcification and unfolding. Central pulmonary arteries are prominent and taper rather quickly, consistent with pulmonary hyperten preethi. Diffuse osteopenia. There is degenerative spurring of the thoracic spine. IMPRESSION: COPD, pulmonary hypertension Aortic atherosclerosis Reviewed, dictated and finalized at location B.
[2020-01-25 10:57] VITALS: BP 106/49; PULSE 79; RESP 18; TEMP 36.8; O2SAT 100
[2020-01-25 11:43] VITALS: BP 159/99; PULSE 79; RESP 18; TEMP 36.8; O2SAT 100
[2020-01-25 12:51] LABS: Basophils Percent Auto 0.3 % (0.2-1.2); Eosinophils Absolute Auto 0.1 K/mm3 (0-0.3); Eosinophils Percent Auto 0.8 % (0-4.4); Hematocrit 30.3 % (42.0-52.0); Hemoglobin 9.8 g/dL (14.0-18.0); Immature Granulocyte Absolute 0.03 K/mm3 (0.00-0.031); Immature Granulocyte Percent A 0.4 % (0-0.5); Lymphocytes Absolute Auto 0.83 K/mm3 (0.9-3.2); Lymphocytes Percent Auto 11.1 % (18.3-44.2); Mean Corpuscular HGB Conc 32.3 g/dl (32-36); Mean Corpuscular Hemoglobin 31.4 pg (26-34); Mean Corpuscular Volume 97.1 fl (80-100); Monocytes Absolute Auto 0.6 K/mm3 (0.1-0.6); Monocytes Percent Auto 7.5 % (2.6-8.5); Neutrophils Percent Auto 79.9 % (45.5-73.1); Platelet Count Result 257 k/mm3 (150-375); Red Blood Count 3.12 M/mm3 (4.6-6.20); Red Cell Distribution Width 14.7 % (11.5-14.5); White Blood Count 7.5 K/mm3 (4.5-10.0)
[2020-01-25 13:04] LABS: Alanine Aminotransferase 20 U/L (4-50); Alkaline Phosphatase 85 U/L (38-126); Aspartate Amino Transferase 29 U/L (17-59); Bilirubin,Total 0.2 mg/dL (0.2-1.3); Blood Urea Nitrogen 22 mg/dL (9-20); Calcium 8.3 mg/dL (8.4-10.2); Carbon Dioxide 28 mmol/L (22-30); Chloride 96 mmol/L (98-107); Estimated CRCL calculation 51 ml/min; Estimated Glomerular Filt Rate > 60; Glucose 80 mg/dL (75-110); Potassium 3.9 mmol/L (3.4-5.0); Sodium 129 mmol/L (137-145)
--- NOTE | 2020-01-25 13:12 | ED.SOB ---
HPI - SOB/Dyspnea General Chief Complaint: Shortness of Breath/Dyspnea Stated Complaint: shortness of breath/prod cough Time Seen by Provider: 01/25/20 11:27 Source: patient Mode of arrival: ambulatory Limitations: no limitations History of Present Illness HPI Narrative: Patient presents via his adult daughter with chief complaint of productive cough and dyspnea with exertion. Patient states he does not feel short of breath when sitting or resting however when he walks about 15 to 20 feet he has to pause to catch his breath. Patient reports a history of emphysema, COPD, CHF and Crohn's. Patient reports that his in the ICU on Wednesday with a unknown respiratory disorder. Patient was recently admitted to the hospital and discharged to rehab facility. Patient's daughter states he lost a large amount of weight prior to admission due to stopping his antidepressant and not eating. He had a feeding tube up to a few weeks ago, but had it removed and has not had complications. She reports patient has been eating 3 meals a day + and drinking fluids. She reports yesterday the home health nurse noted slight swelling to his lower extremities and crackles a the lung bases, called his PCP Dr Gordy Bustamante and he said he wanted the patient to be evaluated in the ER. Related Data Home Medications Medication Instructions Recorded Confirmed fluticasone propionate 50 2 spray NASAL DAILY 08/30/19 01/19/20 mcg/actuation nasal spray,suspension budesonide-formoterol [Symbicort] 2 puff INHALATION Q12H 11/28/19 01/19/20 midodrine 10 mg FEEDING TUBE 0800,1400 11/28/19 01/19/20 Men's Multivitamin 400 tablet PO DAILY 01/19/20 01/19/20 alprazolam 0.5 mg PO PRN PRN 01/19/20 01/19/20 lansoprazole 30 mg PO DAILY 01/19/20 01/19/20 omeprazole 20 mg PO DAILY 01/19/20 01/19/20 timolol maleate 1 drp OPHTHALMIC (EYE) DAILY 01/19/20 01/19/20 zolpidem 5 mg PO HS PRN 01/19/20 01/19/20 Allergies Allergy/AdvReac Type Severity Reaction Status Date / Time No Known Allergies Allergy Verified 01/19/20 14:46 Review of Systems Review of Systems: Narrative: CONSTITUTIONAL: Denies fever, chills, or sweats. EYES: Denies visual changes, redness, or discharge. ENT: Denies rhinorrhea, congestion, sore throat, or otalgia. CARDIOVASCULAR: Denies chest pain, palpitations, or edema. RESPIRATORY: Reports productive cough and exertional dyspnea. GASTROINTESTINAL: Denies abdominal pain, nausea, vomiting, or diarrhea. GENITOURINARY: Denies dysuria or hematuria. SKIN: Denies rash or itching. MUSCULOSKELETAL: Denies back pain, joint pain, or myalgia. NEUROLOGIC: Denies headache, numbness, dizziness, or weakness. PSYCHIATRIC: Denies anxiety or depression. PENDING SALE TO [facility] Past Medical History Medical History (Updated 01/25/20 @ 13:30 by Buddy Hernandez PA-C) Anemia Angina at rest Anxiety AVM (arteriovenous malformation) of duodenum, acquired Bronchiectasis without complication CHF with left ventricular diastolic dysfunction, NYHA class 1 Chronic GERD Chronic obstructive pulmonary disease Claudication COPD (chronic obstructive pulmonary disease) Crohn's disease Dementia Depression DVT prophylaxis Dysphagia Enlarged prostate slightly Essential (primary) hypertension Falls Gastric ulcer GERD (gastroesophageal reflux disease) Glaucoma Hyperlipidemia Hypokalemia Hyponatremia Chronic Ileal stenosis 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
[2020-01-25 13:19] LABS: NT Pro B Type Natriuretic Pept 660 PG/ML (5-100)
== END 2020-01-25 13:57 | disposition home or self-care (01) ==
PROVIDERS: Physician Assistant; Emergency Provider Emergency Medicine; PCP Internal Medicine
DX: J06.9 Acute upper respiratory infection, unspecified (principal); D64.9 Anemia, unspecified; I50.30 Unspecified diastolic (congestive) heart failure; K21.9 Gastro-esophageal reflux disease without esophagitis; K50.90 Crohn's disease, unspecified, without complications; F03.90 Unspecified dementia, unspecified severity, without behavioral disturbance, psychotic disturbance, mood disturbance, and anxiety; J43.9 Emphysema, unspecified; I11.0 Hypertensive heart disease with heart failure; H40.9 Unspecified glaucoma; E78.5 Hyperlipidemia, unspecified; G47.33 Obstructive sleep apnea (adult) (pediatric); G62.9 Polyneuropathy, unspecified; Z86.711 Personal history of pulmonary embolism; I27.20 Pulmonary hypertension, unspecified; Z87.440 Personal history of urinary (tract) infections; Z87.891 Personal history of nicotine dependence
CPT/HCPCS: 36415; 71046; 80053; 83880; 85025; 87804; 99283

== ENCOUNTER 2020-06-13 07:20 | Outpatient (CLI) | payer MEDICARE, SELFPAY ==
--- NOTE | ~2020-06-13 | XR_ITS ---
EXAMINATION: XR abdomen/kub 1V INDICATION: Microscopic hematuria TECHNIQUE: Supine views of the abdomen were obtained on 2 radiographs. COMPARISON: 12/01/2019 FINDINGS: No urinary tract calculi are identified. There is moderate to severe lumbar spondylosis. Ph leboliths are noted in the pelvis. Orthopedic screws are present in the right femoral neck. IMPRESSION: 1. No urolithiasis identified. Reviewed, dictated and finalized at location A.
--- NOTE | ~2020-06-13 | CT_ITS ---
EXAMINATION: CT abdomen pelvis wo/w con DATE: 06/13/2020 08:28 INDICATION: Microhematuria TECHNIQUE: Computed tomography (CT) of the abdomen and pelvis was performed without and subsequently with 115 cc Omnipaque 350 intravenous contrast. Automated exposure control and iterative reconstructi on technique were employed. Exam dose: 448.20 mGy-cm total exam DLP. COMPARISON: 06/13/2020 KUB 11/28/2019 CT abdomen pelvis FINDINGS: Advanced emphysema is evident in the lower lung zones. Normal heart size. No pericardial or pleural effusion. No pericardial or pleural effusion. The liver, gallbladder, bile ducts, spleen, pancreas and pancreatic duct are unremarkable. Normal morphology of the adrenal glands. There are multiple bilateral renal cysts, including one larger approximately 2.6 cm right renal cyst. No urinary tract calculus or hydroureteronephrosis is evident. There is severe abdominal aortic and iliac as well as renal artery and femoral artery calcifications. No abdominal aortic aneurysm. No intraperitoneal or retroperitoneal or pelvic mass lesion or adenopa thy or ascites is evident. There is diffuse bladder wall thickening and very prominent mucosal trabeculation and some diverticul a of the urinary bladder. There is prominent prostate enlargement. There is nonspecific thickening of the wall of the small bowel with numerous small bowel air-fluid le vels. No abnormal dilatation of the small or large bowel is detected. There is some liquid stool in t he colon. Findings suggest infectious or inflammatory enterocolitis. Clinical correlation is advised. No air is noted in the wall of the bowel. No intraperitoneal free air. There are 3 lag screws in the proximal right femur. Osteopenia. Degenerative changes of the lower tho racic and lumbar spine. There is osteoarthritic change at the hip joints. IMPRESSION: Nonspecific thickening of the wall of small bowel, numerous small bowel air-fluid levels , liquid stool in the colon; infectious or inflammatory enterocolitis is suggested Advanced emphysema Bilateral renal cysts Prominent prostate enlargement with diffuse bladder wall thickening and prominent mucosal trabeculati on and some diverticula of the urinary bladder Reviewed, dictated and finalized at Location A. Reviewed, dictated and finalized at location B. IMPRESSION: Nonspecific thickening of the wall of small bowel, numerous small bowel air-fluid levels, liquid stool in the colon; infectious or inflammatory e nterocolitis is suggested Advanced emphysema Bilateral renal cysts Prominent prostate enlargement with diffuse bladder wall thickening and promine nt mucosal trabeculation and some diverticula of the urinary bladder
[2020-06-13 08:00] LABS: Estimated Glomerular Filt Rate > 60
== END 2020-06-13 07:21 | disposition home or self-care (01) ==
LOC: ANHIMG 07:23
PROVIDERS: PCP Internal Medicine; Visit Provider Nurse Practitioner Adult Health
DX: R31.29 Other microscopic hematuria (principal); N28.1 Cyst of kidney, acquired; J43.9 Emphysema, unspecified; N40.0 Benign prostatic hyperplasia without lower urinary tract symptoms
CPT/HCPCS: 36415; 74018; 74178; Q9967

== ENCOUNTER 2020-08-19 19:51 | Observation (INO) | payer MEDICARE, SELFPAY ==
--- NOTE | ~2020-08-19 | XR_ITS ---
EXAMINATION: XR chest 2V EXAM DATE: 08/19/2020 20:40 INDICATION: Shortness of breath, COPD, emphysema, cough, hypertension. TECHNIQUE: Frontal and lateral projections of the chest obtained and reviewed. Comparison is made to prior examination from 01/25/2020. FINDINGS: Severe chronic hyperinflation. The lungs are clear. There are no pleural effusions. The c ardiomediastinal silhouette is within normal limits. There is no pneumothorax suspected. The bones and soft tissues are unremarkable. IMPRESSION: 1. No acute cardiopulmonary findings. 2. Hyperinflation. Reviewed, dictated and finalized at location A.
[2020-08-19 20:02] VITALS: BP 121/85; PULSE 74; RESP 18; TEMP 36.4; O2SAT 99
--- NOTE | 2020-08-19 20:08 | ECG_ITS ---
Measurements Intervals [place]ble Rate: 71 P: 63 UT: 173 QRS: -37 QRSD: 96 T: 54 QT: 408 QTc: 446 Interpretive Statements SINUS RHYTHM LEFT AXIS DEVIATION CANNOT RULE OUT SEPTAL INFARCT, AGE INDETERMINATE EARLY PRECORDIAL R/S TRANSITION BASELINE ARTIFACT- AVR, AVL, AVF, V1 ABNORMAL ECG Electronically Signed On 08-20-2020 6:54:08 CDT by Pedro Carson D.O.
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
[2020-08-19 20:42] LABS: Add Urine Microscopic? YES; Appearance Urine Clear (Clear); Bilirubin Urine Negative (Negative); Blood Urine 2+ (Negative); Color Urine Colorless (Yellow); Glucose Urine UA Negative (Negative); Ketones Urine Negative (Negative); Leukocyte Esterase Ur Negative LEU/UL (Negative); Mucus Urine Rare /lpf; Nitrate Urine Negative (Negative); Protein Urine Negative (Negative); RBC Urine 21-50 /hpf (0-2); Specific Grav Ur 1.012 (1.001-1.035); Urobilinogen Urine Negative mg/dL (<2.0); WBC Urine 0-3 /hpf
[2020-08-19 21:10] LABS: Basophils Percent Auto 0.1 % (0.2-1.2); Eosinophils Absolute Auto 0.1 K/mm3 (0-0.3); Eosinophils Percent Auto 0.6 % (0-4.4); Hematocrit 34.1 % (42.0-52.0); Hemoglobin 11.3 g/dL (14.0-18.0); Immature Granulocyte Absolute 0.03 K/mm3 (0.00-0.031); Immature Granulocyte Percent A 0.3 % (0-0.5); Lymphocytes Percent Auto 10.2 % (18.3-44.2); Mean Corpuscular HGB Conc 33.1 g/dl (32-36); Mean Corpuscular Hemoglobin 30.3 pg (26-34); Mean Corpuscular Volume 91.4 fl (80-100); Mean Platelet Volume 8.7 fl (7.4-10.4); Monocytes Absolute Auto 0.6 K/mm3 (0.1-0.6); Monocytes Percent Auto 6.5 % (2.6-8.5); Neutrophils Percent Auto 82.3 % (45.5-73.1); Platelet Count Result 230 k/mm3 (150-375); Red Blood Count 3.73 M/mm3 (4.6-6.20); Red Cell Distribution Width 15.4 % (11.5-14.5); White Blood Count 9.8 K/mm3 (4.5-10.0)
[2020-08-19 21:21] LABS: Anion Gap 4 mmol/L (8-16); Blood Urea Nitrogen 34 mg/dL (9-20); Calcium 8.5 mg/dL (8.4-10.2); Carbon Dioxide 30 mmol/L (22-30); Chloride 103 mmol/L (98-107); Estimated CRCL calculation 43 ml/min; Estimated Glomerular Filt Rate > 60; Glucose 95 mg/dL (75-110); Potassium 3.9 mmol/L (3.4-5.0); Sodium 137 mmol/L (137-145)
[2020-08-19 21:41] VITALS: BP 184/98; PULSE 73; RESP 20; O2SAT 98
[2020-08-19 22:26] VITALS: BP 174/108; PULSE 70; RESP 18
--- NOTE | 2020-08-19 22:27 | PC.NURSE ---
patients daughter out at nurses station yelling at staff that patients blood pressure is too high and that blood vessels are bursting in his eyes. dr moore made aware and saw patient. patients daughter still angry and states she is going out to her car to call the datawarehouse developer. patient is asymptomatic and denies any distress
[2020-08-19] MEDS: amLODIPine BESYLATE 5 MG TABLET PO (22:46)
[2020-08-19 22:47] VITALS: BP 177/91; PULSE 81; RESP 20; O2SAT 99
[2020-08-19 22:50] LABS: Troponin I < 0.012 ng/mL (0.000-0.034)
[2020-08-20] VITALS (11 sets, daily range): BP systolic 98–179; BP diastolic 60–85; PULSE 59–79; RESP 16–20; TEMP 36.3–36.8; O2SAT 96–100; BMI 18.0
[2020-08-20 01:30] LABS: Troponin I < 0.012 ng/mL (0.000-0.034)
[2020-08-20] MEDS: SODIUM CHLORIDE 0.9% IV 1,000 ML 999 ML IV CONT (02:04)
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
--- NOTE | 2020-08-20 03:03 | ADMGEN ---
This patient, Stanley Cook, was admitted to 3 [facility] Surg Room 315-01. Patient/family oriented to hospital policies and general routines including ID bracelet, bed and alarms, visiting hours, pain management, procedures, bathroom and other care routines, personal items, smoking policy, room service/diet, and visiting hours. Valuables list has been completed. Information on how to activate the Rapid Response Team has been discussed. Patient/Family are encouraged to report perceived risks to care and to ask questions if they do not understand what they are told or what they should do.
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
[2020-08-20 06:02] LABS: Basophils Percent Auto 0.3 % (0.2-1.2); Eosinophils Absolute Auto 0.1 K/mm3 (0-0.3); Hematocrit 32.6 % (42.0-52.0); Hemoglobin 10.8 g/dL (14.0-18.0); Immature Granulocyte Absolute 0.03 K/mm3 (0.00-0.031); Immature Granulocyte Percent A 0.4 % (0-0.5); Lymphocytes Absolute Auto 1.25 K/mm3 (0.9-3.2); Lymphocytes Percent Auto 17.9 % (18.3-44.2); Mean Corpuscular HGB Conc 33.1 g/dl (32-36); Mean Corpuscular Hemoglobin 30.3 pg (26-34); Mean Corpuscular Volume 91.6 fl (80-100); Mean Platelet Volume 9.3 fl (7.4-10.4); Monocytes Absolute Auto 0.6 K/mm3 (0.1-0.6); Monocytes Percent Auto 8.9 % (2.6-8.5); Neutrophils Absolute Auto 4.9 K/mm3 (1.3-6.7); Neutrophils Percent Auto 70.5 % (45.5-73.1); Platelet Count Result 239 k/mm3 (150-375); Red Blood Count 3.56 M/mm3 (4.6-6.20); Red Cell Distribution Width 15.4 % (11.5-14.5)
[2020-08-20 06:27] LABS: Anion Gap 3 mmol/L (8-16); Blood Urea Nitrogen 30 mg/dL (9-20); Calcium 8.6 mg/dL (8.4-10.2); Carbon Dioxide 34 mmol/L (22-30); Chloride 103 mmol/L (98-107); Estimated CRCL calculation 38 ml/min; Estimated Glomerular Filt Rate > 60; Glucose 82 mg/dL (75-110); Potassium 3.5 mmol/L (3.4-5.0); Sodium 140 mmol/L (137-145)
[2020-08-20 06:30] LABS: Troponin I 0.017 ng/mL (0.000-0.034)
[2020-08-20] MEDS: ALBUTEROL SULFATE NEB 2.5 MG/0.5 ML INH 5 MG INHALATION (07:50)
[2020-08-20] MEDS: FOLIC ACID 1 MG TABLET PO (09:42)
[2020-08-20] MEDS: POTASSIUM CHLORIDE 20 MEQ TABLET 40 MEQ PO (09:42)
[2020-08-20] MEDS: FINASTERIDE 5 MG TABLET PO (09:42)
[2020-08-20] MEDS: predniSONE 10 MG TABLET PO (09:42)
[2020-08-20] MEDS: hydroCHLOROthiazide 12.5 MG CAPSULE PO (09:42)
[2020-08-20] MEDS: FLUTICASONE PROPIONATE 0.05% NA SPR 16 GM BTL (*BKC) 2 SPRAY NASAL (09:42)
[2020-08-20] MEDS: PANTOPRAZOLE 40 MG TABLET PO (09:43)
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
== END 2020-08-20 13:05 | disposition home or self-care (01) ==
LOC: ANHED 08-20 01:38 → ANH3MEDSUR 08-20 03:12
PROVIDERS: Emergency Medicine; Admitting Provider Family Medicine; Emergency Provider Emergency Medicine; PCP Internal Medicine; Visit Provider Family Medicine
DX: I95.2 Hypotension due to drugs (principal); J44.1 Chronic obstructive pulmonary disease with (acute) exacerbation; I11.0 Hypertensive heart disease with heart failure; I50.30 Unspecified diastolic (congestive) heart failure; D64.9 Anemia, unspecified; F41.8 Other specified anxiety disorders; K21.9 Gastro-esophageal reflux disease without esophagitis; K50.90 Crohn's disease, unspecified, without complications; N40.0 Benign prostatic hyperplasia without lower urinary tract symptoms; E78.5 Hyperlipidemia, unspecified; G47.33 Obstructive sleep apnea (adult) (pediatric); G62.9 Polyneuropathy, unspecified; Z87.891 Personal history of nicotine dependence; Z23 Encounter for immunization
CPT/HCPCS: 36415; 71046; 80048; 81001; 84484; 85025; 90471; 90653; 93005; 94640; 96360; 97161; 99285; A9270; G0008; G0378; J7030; J7512

== ENCOUNTER 2020-09-30 11:13 | Outpatient (CLI) | payer MEDICARE, SELFPAY ==
--- NOTE | ~2020-09-30 | CT_ITS ---
EXAMINATION:CT chest wo con DATE: 09/30/2020 11:31 INDICATION: Lung nodule. TECHNIQUE: Computed tomography (CT) of the chest was performed without intravenous contrast. Automate d exposure control and iterative reconstruction technique were employed. The dose-length product (DLP ) was 122.85 mGy-cm. COMPARISON: Chest CT 10/19/2019, 12/30/2017 FINDINGS: There is severe emphysema. There is mild scarring at lung apices. There is mild atelectasis bilaterally. There are two 4 mm nodules in left upper lobe, stable from 12/30/2017. There is a 4 mm n odule left lower lobe, stable from 12/30/2017. There is a 3 mm nodule in left upper lobe, stable from 10/19/2019. No pleural effusion. The heart size is normal. There are coronary artery calcifications. No pericardial effusion. The aorta measures 4.5 cm at the sinuses of Valsalva, 3.7 cm at the sinotubu lar junction, and 3.7 cm in the mid ascending aorta. There are bridging endplate osteophytes at multi ple levels in the spine, consistent with diffuse idiopathic skeletal hyperostosis (DISH). IMPRESSION: 1. Stable pulmonary nodules, consistent with granulomatous disease. 2. Severe emphysema. Reviewed, dictated and finalized at location A. [employer]
== END 2020-09-30 11:14 | disposition home or self-care (01) ==
LOC: ANHIMG 11:14
PROVIDERS: PCP Internal Medicine; Visit Provider Internal Medicine Critical Care Medicine
DX: Z12.2 Encounter for screening for malignant neoplasm of respiratory organs (principal); F17.210 Nicotine dependence, cigarettes, uncomplicated
CPT/HCPCS: 71250

== ENCOUNTER 2020-10-16 07:15 | Outpatient (CLI) | payer MEDICARE, SELFPAY ==
--- NOTE | 2020-10-25 12:02 | WPDSIXMINUTE ---
Six Minute Walk Six Minute Walk: The patients O2 sats started at 96% and dropped as low as 91% Total walk distance 182.88 meters conclusion: Although there was some exertional hypoxia it did not meet criteria for home oxygen therapy.
== END 2020-10-16 07:16 | disposition home or self-care (01) ==
PROVIDERS: PCP Internal Medicine; Visit Provider Nurse Practitioner Family
DX: J44.9 Chronic obstructive pulmonary disease, unspecified (principal)
CPT/HCPCS: 94618